=== PATIENT | male | born 1935 | race Caucasian/White ===

== ENCOUNTER → 2019-10-21 12:45 | Outpatient (BNVA) | payer MEDICARE, SELFPAY | PROVIDERS: Family Provider Family Medicine; PCP Family Medicine; Visit Provider Family Medicine | DX: E11.9 Type 2 diabetes mellitus without complications (principal); I10 Essential (primary) hypertension; E03.8 Other specified hypothyroidism | CPT/HCPCS: 80053; 83036; 84443; 85025 ==

== ENCOUNTER → 2021-06-28 10:21 | Outpatient (BNVA) | payer MEDICARE, SELFPAY | PROVIDERS: Family Provider Family Medicine; PCP Family Medicine; Visit Provider Family Medicine | DX: Z00.00 Encounter for general adult medical examination without abnormal findings (principal); E11.65 Type 2 diabetes mellitus with hyperglycemia; E03.8 Other specified hypothyroidism; I10 Essential (primary) hypertension | CPT/HCPCS: 80053; 83036; 84443; 85025 ==

== ENCOUNTER → 2022-05-29 09:57 | Outpatient (BNVA) | payer MEDICARE, SELFPAY | PROVIDERS: Family Provider Family Medicine; PCP Family Medicine; Visit Provider Family Medicine | DX: E03.8 Other specified hypothyroidism (principal); I10 Essential (primary) hypertension; E11.65 Type 2 diabetes mellitus with hyperglycemia; Z23 Encounter for immunization | CPT/HCPCS: 80053; 83036; 84443; 85025 ==

== ENCOUNTER 2022-09-23 05:11 | Emergency (ER) | payer MEDICARE, SELFPAY ==
[2022-09-23 05:18] VITALS: BP 185/99; PULSE 111; RESP 22; TEMP 36.3; O2SAT 92
--- NOTE | 2022-09-23 05:52 | ECG_ITS ---
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 Measurements Intervals [place] Rate: 99 P: 19 [place]: 240 QRS: -16 QRSD: 98 T: 31 QT: 357 QTc: 460 Interpretive Statements SINUS RHYTHM WITH FIRST DEGREE AV BLOCK WITH OCCASIONAL SUPRAVENTRICULAR PREMATURE COMPLEXES MINIMAL VOLTAGE CRITERIA FOR LVH, CONSIDER NORMAL VARIANT [MEETS CRITERIA IN ONE OF: R(aVL), S(V1), R(V5), R(V5/V6)+S(V1)] INFERIOR MYOCARDIAL INFARCTION , PROBABLY OLD [40+ ms Q WAVE AND/OR ST/T ABNORMALITY IN II/aVF] No previous ECG available for comparison Electronically Signed On 09-23-2022 8:35:11 GROUNDS MAINTENANCE SUPERVISOR by Ciarra Menard M.D. [id number]
--- NOTE | 2022-09-23 05:52 | XRR_ITS ---
PROCEDURE INFORMATION: Exam: XR Chest Exam date and time: 09/23/2022 6:02 AM Age: 86 years old Clinical indication: Shortness of breath; Prior surgery; Surgery date: 6+ months; Surgery type: Cabg x20 years ago; Additional info: SOB TECHNIQUE: Imaging protocol: Radiologic exam of the chest. Views: 1 view. COMPARISON: CR XR abdomen min 2V [id number] 10/21/2016 1:09 PM FINDINGS: Lungs: Coarse reticular interstitial lung changes. No definite focal pulmonary consolidation. Pleural spaces: Unremarkable. No pleural effusion. No pneumothorax. Heart/Mediastinum: Cardiac enlargement. CABG. Bones/joints: Unremarkable. XR/XR chest 1V portable [id number] IMPRESSION: Nonspecific pulmonary fibrosis suspected. No definite focal pulmonary consolidation.
[2022-09-23 06:03] LABS: Basophils # 0.1 10^3/uL (0.0-0.1); Basophils % 0.9 %; Eosinophils # 0.7 10^3/uL (0.0-0.8); Eosinophils % 5.3 %; Hematocrit 44.4 % (42.0-52.0); Hemoglobin 14.2 g/dL (11.7-16.6); Lymphocytes # 3.2 10^3/uL (0.8-4.8); Lymphocytes % 22.5 %; Mean Corpuscular Hemoglobin 27.4 pg (28.0-34.0); Mean Corpuscular Volume 85.7 fl (80-94); Monocytes # 1.3 10^3/uL (0.2-0.9); Neutrophils # 8.71 10^3/uL (1.8-7.7); Neutrophils % 61.8 %; Nucleated Red Blood Cells % 0 %; Platelet Count 344 10^3/cmm (130-400); Red Blood Count 5.18 10^6/uL (4.1-5.3); Red Cell Distribution Width 14.1 % (12.1-15.1); White Blood Count 14.1 10^3/uL (4.0-10.0)
[2022-09-23 06:18] LABS: Lactic Sepsis W/Reflex 2.1 mmol/L (0.5-2.2)
[2022-09-23 06:19] LABS: D Dimer 15.76 ug/mIFEU (0-0.59)
[2022-09-23 06:28] LABS: Alanine Aminotransferase 17 U/L (0-41); Albumin Level 4.4 g/dL (3.5-5.2); Alkaline Phosphatase 79 U/L (40-130); Anion Gap 17.5 (5-19); Aspartate Amino Transferase 27 U/L (0-40); Blood Urea Nitrogen 17 mg/dL (8-23); Calcium 9.7 mg/dL (8.5-10.5); Carbon Dioxide 28 mmol/L (22-29); Chloride 94 mmol/L (98-107); Globulin 3.8 g/dL (1.3-4.6); Glucose 75 mg/dL (65-115); NT Pro B Type Natriuretic Pept 480 pg/mL (0-450); Osmolality Calculated 282 mOsm/kg (285-295); Potassium 3.5 mmol/L (3.5-5.1); Sodium 136 mmol/L (136-145); Total Bilirubin 0.4 mg/dL (0.15-1.2); Total Protein 8.2 g/dL (6.6-8.7)
--- NOTE | 2022-09-23 06:30 | CTR_ITS ---
PROCEDURE INFORMATION: Exam: CTA Chest With Contrast Exam date and time: 09/23/2022 7:04 AM Age: 86 years old Clinical indication: Cough and dyspnea; Smoker's cough; Prior surgery; Surgery date: 6+ months; Surgery type: Cabg; Additional info: Chest pain SOB TECHNIQUE: Imaging protocol: Computed tomographic angiography of the chest with contrast. 3D rendering (Not supervised by radiologist): MIP reconstructed images were created by the technologist. Radiation optimization: All CT scans at this facility use at least one of these dose optimization techniques: automated exposure control; mA and/or kV adjustment per patient size (includes targeted exams where dose is matched to clinical indication); or iterative reconstruction. Contrast material: OMNI 350; Contrast volume: 100 ml; Contrast route: INTRAVENOUS (IV); Other protocol: This patient has received 0 known CTs and 0 known cardiac nuclear medicine studies in the 12 months prior to the current study. COMPARISON: CR (CHEST, ) 09/23/2022 6:02 AM RADIATION DOSE METRICS: Total DLP (mGy-cm): 436.12 FINDINGS: Pulmonary arteries: No pulmonary artery embolism identified. Aorta: Moderate aortic arch, branch, and descending thoracic aortic atherosclerotic calcification without ectasia. Veins: The main portal vein measures 10.1 mm. Thyroid: Small bilateral thyroid lobes (status post ablative therapy?). Lungs: Peripheral interlobular septal thickening with architectural distortion, with a relative apico-basal gradient. Lower lung zone subpleural cystic changes and cicatricial bronchiectasis, with areas of peripheral endobronchial mucoid impaction. Left lung calcified granulomas. Pleural spaces: No pneumothorax. No pleural effusion. Heart: Moderate aortic valvular calcification is present. Coronary arteries: Left main, LAD, LCx and RCA [place] calcified coronary atherosclerosis. MARIEE and 2 anterior ascending aortic coronary artery grafts. Assessment of grafts is limited due to predominantly pulmonary arterial bolus phase. Lymph nodes: Left hilar granulomatous kimi calcifications are present. Right superior hilar lymph node measuring 10.8 mm short axis, multiple additional smaller right hilar lymph nodes. Left hilar lymph nodes, largest measuring 11.7 mm. Calcified and noncalcified subcarinal lymph nodes, largest uncalcified lymph node measuring 12.9 mm. Right upper paratracheal lymph nodes, largest 9.8 mm short axis. Small aorticopulmonary window lymph nodes, largest 5.9 mm short axis. Liver: There is a nodular contour to the liver and hypertrophy of the left lobe lateral segment and caudate lobe, consistent with hepatic cirrhosis. Gallbladder and bile ducts: A single 26 mm gallstone is present dependently in the nondistended gallbladder. No wall thickening or pericholecystic fluid identified. Pancreas: Severe pancreatic atrophy. Spleen: The spleen demonstrates a few small granulomatous calcifications. Kidneys and ureters: Bilateral renal benign cysts, largest on the left measuring 5.2 cm. Bones/joints: The patient is status post median sternotomy with sternal cerclage wires. Soft tissues: Mild bilateral gynecomastia. CT/CT angio chest PE protcl [id number] IMPRESSION: 1. No pulmonary artery embolism identified. 2. No thoracic aortic aneurysm or dissection identified. 3. Pulmonary interstitial fibrosis. 4. Nonspecific mild bilateral pulmonary hilar and subcarinal lymphadenopathy. 5. [place] coronary atherosclerosis status post coronary artery grafting. 6. Bilateral renal benign cysts. No follow-up imaging is recommended. 7. Hepatic cirrhosis. 8. Cholelithiasis. COMMENTS: Consistent with the [place] [employer]'s Incidental Findings Committee white paper (J Am Khadijah Radiol 2018): Any incidental renal lesion less than 1 cm or classified as too small to characterize, or any incidental cystic renal lesion characterized as simple-appearing, is likely benign. No follow-up imaging is recommended for these lesions per consensus recommendations based on imaging criteria.
[2022-09-23 06:35] LABS: Troponin(5th) Baseline 39 ng/L (0-15)
[2022-09-23 06:37] LABS: Influenza A by IFA negative (Negative); Influenza B by IFA negative (Negative); SARS Covid-2 Antigen negative (Negative)
--- NOTE | 2022-09-23 07:09 | ED_ITS ---
Documented by User: Jassi Milligan DO 09/23/22 19:54 HPI - SOB/Dyspnea General: Chief Complaint: Shortness of Breath/Dyspnea Stated Complaint: cough Time Seen by Provider: 09/23/22 05:42 Source: patient History of Present Illness: HPI Narrative: 86-year-old gentleman who lives at home. He presents with a cough that been ongoing for a couple of weeks. It seems to be getting worse. He is experienc ing some shortness of breath. Sputum is clear. No fever. No significant chest pain except with cough mainly. No recent increase in lower extremity swelling. He experiences some orthopnea. MD elicited complaint: shortness of breath and cough Pertinent past history: other Onset (ago): week(s) Exacerbating factors: lying flat and exertion Relieving factors: nothing Known history of: other Associated symptoms: Reports chest congestion, cough and orthopnea; Deny chest pain, diaphoresis, dizziness, nausea, syncope or vomiting Treatment prior to arrival: none Related Data: Home oxygen amount: none Review of Systems Const: Denies: diaphoresis Eyes: Denies: change in vision Card: Reports: orthopnea; Denies: chest pain or syncope Resp: Reports: chest congestion GI: Denies: nausea or vomiting Skin/Breast: Denies: rash Neuro: Denies: headache(s), weakness in extremities, dizziness or confusion PFSH ED PFSH: Medical History Diabetes Hypertension Hypothalamic hypothyroidism Surgical History History of heart bypass surgery Social History Smoking and tobacco status: never smoked Alcohol intake: never Physical Exam Const: COMMON NORMALS: no acute distress GENERAL APPEARANCE: cooperative; not ill appearing and not frail appearing HENMT: COMMON NORMALS: normocephalic, atraumatic and Normal external nose present HEAD & SCALP: normocephalic and atraumatic FACE & SINUS: normal facial exam and face symmetric NOSE: Normal external nose present Eye: COMMON NORMALS: Equal, round and reactive pupils present and EOMs intact bilaterally PUPIL: Yes Equal, round and reactive pupils present Neck/C-Spine: GENERAL: Yes trachea midline Chest: CHEST: Yes Symmetrical chest wall rise Resp: COMMON NORMALS: normal respiratory effort, No retractions, No use of accessory muscles and clear to auscultation bilaterally AUSCULTATION: clear to auscultation bilaterally Cardio: COMMON NORMALS: regular rate and regular rhythm RATE: regular rate RHYTHM: regular rhythm GI: COMMON NORMALS: Normal to inspection, nondistended, normoactive bowel sounds present Extremity: COMMON NORMALS: no pedal edema Neuro: ALY COMA SCALE: document GCS findings Aly coma scale eye opening: Spontaneous Stanley coma scale verbal response: Orientated Aly coma scale motor response: Obey commands Stanley coma scale total score: 15 SENSORY EXAM: Yes extremities (intact) Psych: COMMON NORMALS: speech normal SPEECH: Yes normal speech Skin: COMMON NORMALS: no rashes or lesions noted GENERAL SKIN EXAM: no rashes or lesions noted Course Vital Signs: Vital signs: Vital Signs Temperature 97.4 F L 09/23/22 05:18 Pulse Rate 92 09/23/22 07:56 Respiratory Rate 20 H 09/23/22 07:56 Blood Pressure 127/63 09/23/22 07:56 Pulse Oximetry 89 L 09/23/22 10:09 Oxygen Delivery Me thod 09/23/22 07:56 Oxygen Flow Rate 2 09/23/22 10:09 MDM - SOB/Dyspnea Medical Decision Making 86-year-old gentleman who was placed on oxygen for his comfort. Initially was mildly tachycardic. Currently vital signs are pulse ox 99% on 2 L, heart rate 78, blood pressure 118 systolic. His hemoglobin is 14. His white blood cell count is 14. His BMP is not remarkable. His BNP is 480. His baseline troponin is 39. Flu and COVID antigen tests are negative. His D-dimer is significantly elevated at 16. CTA of the chest is pending. He is checked out to the oncoming physician pending results.. Lab Data 09/23/22 05:30 09/23/22 05:30 Labs/Radiology: Radiology Impressions Chest X-Ray 09/23/22 05:52 IMPRESSION: Nonspecific pulmonary fibrosis suspected. No definite focal pulmonary consolidation. Chest CTA 09/23/22 06:30 IMPRESSION: 1. No pulmonary artery embolism identified. 2. No thoracic aortic aneurysm or dissection identified. 3. Pulmonary interstitial fibrosis. 4. Nonspecific mild bilateral pulmonary hilar and subcarinal lymphadenopathy. 5. [place] coronary atherosclerosis status post coronary artery grafting. 6. Bilateral renal benign cysts. No follow-up imaging is recommended. 7. Hepatic cirrhosis. 8. Cholelithiasis. COMMENTS: Consistent with the [place] [employer]'s Incidental Findings Committee white paper (J Am Khadijah Radiol 2018): Any incidental renal lesion less than 1 cm or classified as too small to characterize, or any incidental cystic renal lesion characterized as simple-appearing, is likely benign. No follow-up imaging is recommended for these lesions per consensus recommendations based on imaging criteria. Laboratory Results WBC 14.1 10^3/uL (4.0-10.0) H 09/23/22 05:30 RBC 5.18 10^6/uL (4.1-5.3) 09/23/22 05:30 Hgb 14.2 g/dL (11.7-16.6) 09/23/22 05:30 Hct 44.4 % (42.0-52.0) 09/23/22 05:30 MCV 85.7 fl (80-94) 09/23/22 05:30 MCH 27.4 pg (28.0-34.0) L 09/23/22 05:30 MCHC 32.0 g/dL (30.0-36.0) 09/23/22 05:30 RDW 14.1 % (12.1-15.1) 09/23/22 05:30 Plt Count 344 10^3/cmm (130-400) 09/23/22 05:30 MPV 10.0 fL (7.4-10.4) 09/23/22 05:30 Neut % (Auto) 61.8 % 09/23/22 05:30 Lymph % (Auto) 22.5 % 09/23/22 05:30 Treasure % (Auto) 9.0 % 09/23/22 05:30 Eos % (Auto) 5.3 % 09/23/22 05:30 Baso % (Auto) 0.9 % 09/23/22 05:30 Neut # (Auto) 8.71 10^3/uL (1.8-7.7) H 09/23/22 05:30 Lymph # (Auto) 3.2 10^3/uL (0.8-4.8) 09/23/22 05:30 Treasure # (Auto) 1.3 10^3/uL (0.2-0.9) H 09/23/22 05:30 Eos # (Auto) 0.7 10^3/uL (0.0-0.8) 09/23/22 05:30 Baso # (Auto) 0.1 10^3/uL (0.0-0.1) 09/23/22 05:30 Nucleated RBC % (auto) 0 % 09/23/22 05:30 Nucleated RBCs # 0.0 /100WBC 09/23/22 05:30 D-Dimer 15.76 ug/mIFEU (0-0.59) H 09/23/22 05:30 Sodium 136 mmol/L (136-145) 09/23/22 05:30 Potassium 3.5 mmol/L (3.5-5.1) 09/23/22 05:30 Chloride 94 mmol/L (98-107) L 09/23/22 05:30 Carbon Dioxide 28 mmol/L (22-29) 09/23/22 05:30 Anion Gap 17.5 (5-19) 09/23/22 05:30 BUN 17 mg/dL (8-23) 09/23/22 05:30 Creatinine 1.0 mg/dL (0.7-1.2) 09/23/22 05:30 GFR Calculation Not Reportable 09/23/22 05:30 Glucose 75 mg/dL (65-115) 09/23/22 05:30 Calculated Osmolality 282 mOsm/kg (285-295) L 09/23/22 05:30 Lactic Acid 2.1 mmol/L (0.5-2.2) 09/23/22 05:30 Lactic Acid (Sepsis) 1.3 mmol/L (0.5-2.2) 09/23/22 08:30 Calcium 9.7 mg/dL (8.5-10.5) 09/23/22 05:30 Total Bilirubin 0.4 mg/dL (0.15-1.2) 09/23/22 05:30 AST 27 U/L (0-40) 09/23/22 05:30 ALT 17 U/L (0-41) 09/23/22 05:30 Alkaline Phosphatase 79 U/L (40-130) 09/23/22 05:30 Troponin T Baseline 39 ng/L (0-15) H 09/23/22 05:30 Troponin T 120 Minute 34.36 ng/L (0-15) H 09/23/22 07:20 Delta Troponin T -4.64 ABS# (0-10) L 09/23/22 07:20 NT-Pro-B Natriuret Pep 480 pg/mL (0-450) H 09/23/22 05:30 Total Protein 8.2 g/dL (6.6-8.7) 09/23/22 05:30 Albumin 4.4 g/dL (3.5-5.2) 09/23/22 05:30 Globulin 3.8 g/dL (1.3-4.6) 09/23/22 05:30 Influenza Type A Ag negative (Negative) 09/23/22 06:00 Influenza Type B Ag negative (Negative) 09/23/22 06:00 SARS-CoV-2 Ag (Rapid) negative (Negative) 09/23/22 06:00 Discharge Plan Discharge Patient Disposition: Home Clinical Impression: Interstitial pulmonary fibrosis Condition: Stable Prescriptions: New Advair Diskus 100-50 mcg/dose blister with device 1 inh inhalation BID Qty: 60 0RF prednisone 20 mg tablet 20 mg PO TID Qty: 15 0RF Rx Instructions: 1 p.o. 3 times daily x3 days, 1 p.o. twice daily x2 days, 1 p.o. daily x2 days No Action aspirin 325 mg tablet 325 mg PO DAILY nitroglycerin [Nitrostat] 0.4 mg tablet, sublingual 0.4 mg SUBLINGUAL Q5M PRN (Reason: chest pain) Qty: 30 3RF nitroglycerin [Nitro-Time] 2.5 mg capsule, extended release 2.5 mg PO BID Qty: 180 3RF Rx Instructions: allow nitrate-free interval of approx. 10-12 hrs per 24-hour period folic acid 1 mg tablet 1 mg PO DAILY 90 Days Qty: 90 1RF glipizide 10 mg tablet 10 mg PO BID 90 Days Qty: 180 1RF lisinopril-hydrochlorothiazide 20-12.5 mg tablet 1 tab PO BID metformin 850 mg tablet 850 mg PO BID pioglitazone 30 mg tablet 30 mg PO DAILY levothyroxine 112 mcg tablet 112 mcg PO DAILY Discharge Orders: Discharge ED (Routine); Ordered 09/23/22 Ordered By: Rober Tracy Other Ambulatory Orders: DME: Oxygen (Order) Location: None Selected Ordered By: Rober Tracy Referrals: Cherelle Nieto MD [Primary Care Provider] - Discharge Diet: Usual diet Discharge Activity: Resume usual activity Patient Instructions: Opioid Safety, Pain Management Activity Restrictions/Additional Instructions: You were seen today for shortness of breath. Your testing shows you have pulmonary interstitial fibrosis. Your oximetry improved with supplemental oxygen. Will be discharged home on 2 L/min by nasal cannula. We will make arrangements for you to have an outpatient echocardiogram and consultation with pulmonology. Sign Out Sign Out Data: Patient Sign Out occurred on 09/23/22 at 07:20. Patient's care was discussed, and care was transferred from to Rober Tracy DO. Coding Level of Care Code ED Photo Mask Pattern Generator for Chg Fwd Documented by User: Rober Tracy DO 09/25/22 06:29 HPI - SOB/Dyspnea General: Chief Complaint: Shortness of Breath/Dyspnea Stated Complaint: cough Time Seen by Provider: 09/23/22 05:42 [facility] ED PFSH: Medical History Diabetes Hypertension Hypothalamic hypothyroidism Surgical History History of heart bypass surgery Social History Smoking and tobacco status: never smoked Alcohol intake: never Physical Exam Neuro: ALY COMA SCALE: document GCS findings Aly coma scale total score: 15 Course Vital Signs: Vital signs: Vital Signs Temperature 97.4 F L 09/23/22 05:18 Pulse Rate 92 09/23/22 07:56 Respiratory Rate 20 H 09/23/22 07:56 Blood Pressure 127/63 09/23/22 07:56 Pulse Oximetry 89 L 09/23/22 10:09 Oxygen Delivery Me thod 09/23/22 07:56 Oxygen Flow Rate 2 09/23/22 10:09 MDM - SOB/Dyspnea Medical Decision Making 86-year-old gentleman who was placed on oxygen for his comfort. Initially was mildly tachycardic. Currently vital signs are pulse ox 99% on 2 L, heart rate 78, blood pressure 118 systolic. His hemoglobin is 14. His white blood cell count is 14. His BMP is not remarkable. His BNP is 480. His baseline troponin is 39. Flu and COVID antigen tests are negative. His D-dimer is significantly elevated at 16. CTA of the chest is pending. He is checked out to the oncoming physician pending results.. Patient care handoff received from Dr. Milligan continuation of ED evaluation. I personally saw and evaluated patient and reperformed alvarado portions of E/M. Patient feels he is improved. Laboratory tests and imaging reviewed his CT did not show any PEs. Discharge patient home on home oxygen at 2 L also start him on Advair and a prednisone taper follow-up with outpatient echocardiogram and pulmonology Labs imaging and EKG reviewed troponins trending down CTA negative EKG showed no acute changes. Medical Records I reviewed the patient's medical records. Lab Data I reviewed the patient's lab results. 09/23/22 05:30 09/23/22 05:30 Labs/Radiology: Radiology Impressions Chest X-Ray 09/23/22 05:52 IMPRESSION: Nonspecific pulmonary fibrosis suspected. No definite focal pulmonary consolidation. Chest CTA 09/23/22 06:30 IMPRESSION: 1. No pulmonary artery embolism identified. 2. No thoracic aortic aneurysm or dissection identified. 3. Pulmonary interstitial fibrosis. 4. Nonspecific mild bilateral pulmonary hilar and subcarinal lymphadenopathy. 5. [place] coronary atherosclerosis status post coronary artery grafting. 6. Bilateral renal benign cysts. No follow-up imaging is recommended. 7. Hepatic cirrhosis. 8. Cholelithiasis. COMMENTS: Consistent with the [place] [employer]'s Incidental Findings Committee white paper (J Am Khadijah Radiol 2018): Any incidental renal lesion less than 1 cm or classified as too small to characterize, or any incidental cystic renal lesion characterized as simple-appearing, is likely benign. No follow-up imaging is recommended for these lesions per consensus recommendations based on imaging criteria. Laboratory Results WBC 14.1 10^3/uL (4.0-10.0) H 09/23/22 05:30 RBC 5.18 10^6/uL (4.1-5.3) 09/23/22 05:30 Hgb 14.2 g/dL (11.7-16.6) 09/23/22 05:30 Hct 44.4 % (42.0-52.0) 09/23/22 05:30 MCV 85.7 fl (80-94) 09/23/22 05:30 MCH 27.4 pg (28.0-34.0) L 09/23/22 05:30 MCHC 32.0 g/dL (30.0-36.0) 09/23/22 05:30 RDW 14.1 % (12.1-15.1) 09/23/22 05:30 Plt Count 344 10^3/cmm (130-400) 09/23/22 05:30 MPV 10.0 fL (7.4-10.4) 09/23/22 05:30 Neut % (Auto) 61.8 % 09/23/22 05:30 Lymph % (Auto) 22.5 % 09/23/22 05:30 Treasure % (Auto) 9.0 % 09/23/22 05:30 Eos % (Auto) 5.3 % 09/23/22 05:30 Baso % (Auto) 0.9 % 09/23/22 05:30 Neut # (Auto) 8.71 10^3/uL (1.8-7.7) H 09/23/22 05:30 Lymph # (Auto) 3.2 10^3/uL (0.8-4.8) 09/23/22 05:30 Treasure # (Auto) 1.3 10^3/uL (0.2-0.9) H 09/23/22 05:30 Eos # (Auto) 0.7 10^3/uL (0.0-0.8) 09/23/22 05:30 Baso # (Auto) 0.1 10^3/uL (0.0-0.1) 09/23/22 05:30 Nucleated RBC % (auto) 0 % 09/23/22 05:30 Nucleated RBCs # 0.0 /100WBC 09/23/22 05:30 D-Dimer 15.76 ug/mIFEU (0-0.59) H 09/23/22 05:30 Sodium 136 mmol/L (136-145) 09/23/22 05:30 Potassium 3.5 mmol/L (3.5-5.1) 09/23/22 05:30 Chloride 94 mmol/L (98-107) L 09/23/22 05:30 Carbon Dioxide 28 mmol/L (22-29) 09/23/22 05:30 Anion Gap 17.5 (5-19) 09/23/22 05:30 BUN 17 mg/dL (8-23) 09/23/22 05:30 Creatinine 1.0 mg/dL (0.7-1.2) 09/23/22 05:30 GFR Calculation Not Reportable 09/23/22 05:30 Glucose 75 mg/dL (65-115) 09/23/22 05:30 Calculated Osmolality 282 mOsm/kg (285-295) L 09/23/22 05:30 Lactic Acid 2.1 mmol/L (0.5-2.2) 09/23/22 05:30 Lactic Acid (Sepsis) 1.3 mmol/L (0.5-2.2) 09/23/22 08:30 Calcium 9.7 mg/dL (8.5-10.5) 09/23/22 05:30 Total Bilirubin 0.4 mg/dL (0.15-1.2) 09/23/22 05:30 AST 27 U/L (0-40) 09/23/22 05:30 ALT 17 U/L (0-41) 09/23/22 05:30 Alkaline Phosphatase 79 U/L (40-130) 09/23/22 05:30 Troponin T Baseline 39 ng/L (0-15) H 09/23/22 05:30 Troponin T 120 Minute 34.36 ng/L (0-15) H 09/23/22 07:20 Delta Troponin T -4.64 ABS# (0-10) L 09/23/22 07:20 NT-Pro-B Natriuret Pep 480 pg/mL (0-450) H 09/23/22 05:30 Total Protein 8.2 g/dL (6.6-8.7) 09/23/22 05:30 Albumin 4.4 g/dL (3.5-5.2) 09/23/22 05:30 Globulin 3.8 g/dL (1.3-4.6) 09/23/22 05:30 Influenza Type A Ag negative (Negative) 09/23/22 06:00 Influenza Type B Ag negative (Negative) 09/23/22 06:00 SARS-CoV-2 Ag (Rapid) negative (Negative) 09/23/22 06:00 Discharge Plan Discharge Patient Disposition: Home Clinical Impression: Interstitial pulmonary fibrosis Condition: Stable Prescriptions: New Advair Diskus 100-50 mcg/dose blister with device 1 inh inhalation BID Qty: 60 0RF prednisone 20 mg tablet 20 mg PO TID Qty: 15 0RF Rx Instructions: 1 p.o. 3 times daily x3 days, 1 p.o. twice daily x2 days, 1 p.o. daily x2 days No Action aspirin 325 mg tablet 325 mg PO DAILY nitroglycerin [Nitrostat] 0.4 mg tablet, sublingual 0.4 mg SUBLINGUAL Q5M PRN (Reason: chest pain) Qty: 30 3RF nitroglycerin [Nitro-Time] 2.5 mg capsule, extended release 2.5 mg PO BID Qty: 180 3RF Rx Instructions: allow nitrate-free interval of approx. 10-12 hrs per 24-hour period folic acid 1 mg tablet 1 mg PO DAILY 90 Days Qty: 90 1RF glipizide 10 mg tablet 10 mg PO BID 90 Days Qty: 180 1RF lisinopril-hydrochlorothiazide 20-12.5 mg tablet 1 tab PO BID metformin 850 mg tablet 850 mg PO BID pioglitazone 30 mg tablet 30 mg PO DAILY levothyroxine 112 mcg tablet 112 mcg PO DAILY Discharge Orders: Discharge ED (Routine); Ordered 09/23/22 Ordered By: Rober Tracy Other Ambulatory Orders: DME: Oxygen (Order) Location: None Selected Ordered By: Rober Tracy Referrals: Cherelle Nieto MD [Primary Care Provider] - Discharge Diet: Usual diet Discharge Activity: Resume usual activity Patient Instructions: Opioid Safety, Pain Management Activity Restrictions/Additional Instructions: You were seen today for shortness of breath. Your testing shows you have pulmonary interstitial fibrosis. Your oximetry improved with supplemental oxygen. Will be discharged home on 2 L/min by nasal cannula. We will make arrangements for you to have an outpatient echocardiogram and consultation with pulmonology. Sign Out Sign Out Data: Patient Sign Out occurred on 09/23/22 at 07:20. Patient's care was discussed, and care was transferred from to Rober Tracy DO. Coding Level of Care Code ED Photo Mask Pattern Generator for Guido Camarillo
[2022-09-23] MEDS: iohexol 350 mg/mL 500 mL Btl (per mL) IV (07:14)
[2022-09-23 07:41] LABS: Troponin 5 2HR 34.36 ng/L (0-15)
[2022-09-23 07:45] LABS: Troponin 5 2HR Delta -4.64 ABS# (0-10)
[2022-09-23 07:48] LABS: Reflex Lactate Order REFLEX LACTIC ORDERD
--- NOTE | 2022-09-23 07:52 | ECG_ITS ---
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 Measurements Intervals [place] Rate: 94 P: 72 [place]: 243 QRS: 3 QRSD: 106 T: 36 QT: 386 QTc: 483 Interpretive Statements SINUS RHYTHM WITH SINUS ARRHYTHMIA WITH FIRST DEGREE AV BLOCK MINIMAL ST DEPRESSION [0.025+ mV ST DEPRESSION] Compared to ECG 09/23/2022 06:07:26 ST (T wave) deviation now present Myocardial infarct finding no longer present Electronically Signed On 09-23-2022 22:15:38 COMMERCIAL HVAC SERVICE TECHNICIAN by Ciarra Menard M.D. [email or web address]
[2022-09-23 07:56] VITALS: BP 127/63; PULSE 92; RESP 20; O2SAT 97
[2022-09-23 09:04] LABS: Lactic Acid level (Lactate) 1.3 mmol/L (0.5-2.2)
[2022-09-23 10:09] VITALS: O2SAT 85; O2SAT 89; O2SAT 94
--- NOTE | 2022-09-23 10:24 | PC.NURSE ---
PT VERBALIZED THAT HOME O2 EVAL PERFORMED BY RT.
--- NOTE | 2022-09-23 10:24 | PC.NURSE ---
NO REPORT ASSUMED CARE OF PT. WHILE AT BEDSIDE PT IS SITTING IN BED IN NAD. PT DOES NOT VERBALIZE ANY NEEDS AT THIS TIME.
--- NOTE | 2022-09-23 11:11 | PC.NURSE ---
I went into the patients room to answer his call light and found the patient sitting on the floor by his bed. Pt states I was trying to walk and fell over. Pt denies hitting his head or hurting anywhere else. Pt assisted to bed with SUDHA Zeng and I. Pt hooked up to the VS monitor. Pt is on 3 L NC satting at 91%. VS stable.
--- NOTE | 2022-09-23 14:52 | DCPLANNER ---
Addendum entered by Lynn Alfred 11/26/22 14:49: Patient had a follow up appointment with pulmonology - patient did attend appointment Addendum entered by Lynn Alfred 10/30/22 08:28: Patient had a PFT and an echo scheduled - patient attended both appointments Addendum entered by Lynn Alfred 09/27/22 13:51: Patient has a follow up appointment scheduled for Friday, October 21, 2022 at 10:15 for an outpatient echo. Patient has a follow up appointment scheduled for September at 10:00 Centralized scheduling will call patient with appointment information. Addendum entered by Lynn Alfred 09/24/22 10:11: Patient has a follow up appointment scheduled for Friday, November 25, 2022 at 2:[address] Garay at [facility]. Clinic will call patient with appointment information. Original Note: technical sales support manager had message to schedule an outpatient echo and pulmonary function test for patient. technical sales support manager faxed signed order to centralized scheduling, who will call patient with appointment information. technical sales support manager also had message to schedule a follow up appointment with pulmonology. technical sales support manager sent patients information to the front office staff at [facility]. Patients information will be printed and reviewed. Clinic will call patient with appointment information. technical sales support manager called patients primary care physician, Dr. Nieto, spoke with his nurse. technical sales support manager informed the nurse that patient was seen in the ER and let them know that the ER physician order some tests from the ER and a follow up with pulmonology and asked if the physician wanted adult protective caseworker to proceed with ordering the tests and the referral to pulmonology. technical sales support manager was told to go ahead and order tests and make the referral.
== END 2022-09-23 13:58 | disposition home or self-care (01) ==
PROVIDERS: Emergency Medicine; Emergency Provider Family Medicine; PCP Family Medicine
DX: J84.10 Pulmonary fibrosis, unspecified (principal); Z79.82 Long term (current) use of aspirin; Z79.84 Long term (current) use of oral hypoglycemic drugs; Z20.822 Contact with and (suspected) exposure to COVID-19; E11.9 Type 2 diabetes mellitus without complications; I10 Essential (primary) hypertension
CPT/HCPCS: 36415; 71045; 71275; 80053; 83605; 83880; 84484; 85025; 85378; 87040; 87426; 87804; 93005; 99285; Q9967

== ENCOUNTER 2022-10-10 09:40 | Outpatient (CLI) | payer MEDICARE, SELFPAY ==
[2022-10-10 10:06] VITALS: PULSE 80; RESP 18; O2SAT 92
[2022-10-10 10:11] VITALS: PULSE 82
== END 2022-10-10 09:41 | disposition home or self-care (01) ==
PROVIDERS: PCP Family Medicine; Visit Provider Family Medicine
DX: J84.10 Pulmonary fibrosis, unspecified (principal)
CPT/HCPCS: 94060; 94726; 94729; J7613

== ENCOUNTER 2022-10-14 16:21 | Emergency (ER) | payer MEDICARE, SELFPAY ==
[2022-10-14 16:27] VITALS: BP 135/74; PULSE 87; RESP 18; TEMP 36.5; O2SAT 97; BMI 37.8
[2022-10-14 16:51] VITALS: BP 122/58; PULSE 106; O2SAT 98
--- NOTE | 2022-10-14 17:59 | W.ED.GENADLT ---
HPI - General Adult General: Chief complaint: General Medical Stated complaint: WOUNDS Time Seen by Provider: 10/14/22 16:42 History of Present Illness: 86-year-old male in with concerns of sores on his bottom that have been getting increasingly red with some scant drainage. Patient's been more bedbound than normal. His noted that these areas have changed somewhat and recommended that he come to the emergency department for evaluation. Patient has multiple medical problems including chronic respiratory failure that limit his activity. He denies any fever or chills. No other symptoms reported. Review of Systems General: Reports: 10 or more systems reviewed and unremarkable except in HPI and below Skin/Breast: Reports: erythema, skin swelling, sores, new lesions, changing lesions and non-healing lesions PFSH ED PFSH: Medical History (Updated 10/14/22 @ 18:08 by William Cazares DO) Diabetes Hypertension Hypothalamic hypothyroidism Interstitial lung disease Surgical History History of heart bypass surgery Social History Smoking and tobacco status: never smoked Alcohol intake: never Physical Exam Const: COMMON NORMALS: no acute distress, patient oriented x3, alert and well nourished Eye: COMMON NORMALS: Equal, round and reactive pupils present, EOMs intact bilaterally and conjunctivae normal CONJUNCTIVA: Yes conjunctivae normal PUPIL: Yes Equal, round and reactive pupils present Neck/C-Spine: COMMON NORMALS: no JVD Chest: COMMONS NORMALS: normal inspection of the chest and normal palpation of entire chest wall Resp: COMMON NORMALS: normal respiratory effort, No retractions, No use of accessory muscles, clear to auscultation bilaterally and percussion normal AUSCULTATION: clear to auscultation bilaterally PERCUSSION: percussion normal Cardio: COMMON NORMALS: no JVD GI: COMMON NORMALS: Normal to inspection, nondistended, normoactive bowel sounds present, Soft to palpation, non-tender, No hepatosplenomegaly present, no masses and no bruits PALPATION: Yes Soft to palpation and Yes No hepatosplenomegaly present Extremity: COMMON NORMALS: normal to inspection, full ROM, capillary refill normal, no joint enlargement, no clubbing, cyanosis or edema, no calf tenderness and no pedal edema Neuro: COMMON NORMALS: patient oriented x3 SENSORIUM/ORIENTATION: Yes alert Skin: NARRATIVE SKIN EXAM: Several scattered stage I and stage II sacral pressure ulcers with some surrounding erythema and scant yellow drainage. Course Vital Signs: Vital signs: Vital Signs Temperature 97.7 F 10/14/22 16:27 Pulse Rate 94 10/14/22 18:20 Respiratory Rate 18 10/14/22 16:27 Blood Pressure 113/73 10/14/22 18:20 Pulse Oximetry 97 10/14/22 18:20 Oxygen Delivery Me thod 10/14/22 16:27 Oxygen Flow Rate 2 10/14/22 16:27 MDM - General Adult Medical Decision Making 86-year-old male in with a skin and soft tissue infection these most likely secondarily infected pressure ulcers. I do not think there is any abscess or more serious condition such as Chinedu's gangrene or the like. I recommended offloading and frequent turning to avoid pressure on this area start an antibiotic and have close follow-up with his primary care physician. Return precautions and follow-up instructions given. Discharge Plan Discharge Patient Disposition: Home Clinical Impression: Pressure ulcer, Cellulitis Condition: Stable Prescriptions: New cephalexin 500 mg capsule 500 mg PO TID 7 Days Qty: 21 0RF No Action aspirin 325 mg tablet 325 mg PO DAILY nitroglycerin [Nitrostat] 0.4 mg tablet, sublingual 0.4 mg SUBLINGUAL Q5M PRN (Reason: chest pain) Qty: 30 3RF prednisone 10 mg tablet 10 mg PO DAILY Qty: 7 0RF Rx Instructions: start this on friday...will be out of 20mg tab 10/08/22. nitroglycerin [Nitro-Time] 2.5 mg capsule, extended release 2.5 mg PO BID Qty: 180 3RF Rx Instructions: allow nitrate-free interval of approx. 10-12 hrs per 24-hour period folic acid 1 mg tablet 1 mg PO DAILY 90 Days Qty: 90 1RF glipizide 10 mg tablet 10 mg PO BID 90 Days Qty: 180 1RF lisinopril-hydrochlorothiazide 20-12.5 mg tablet 1 tab PO BID metformin 850 mg tablet 850 mg PO BID pioglitazone 30 mg tablet 30 mg PO DAILY levothyroxine 112 mcg tablet 112 mcg PO DAILY Advair Diskus 100-50 mcg/dose blister with device 1 inh inhalation BID Qty: 60 0RF Discharge Orders: Discharge ED (Routine); Ordered 10/14/22 Ordered By: William Cazares Referrals: Cherelle Nieto MD [Primary Care Provider] - Discharge Diet: Usual diet Discharge Activity: Resume usual activity Patient Instructions: Opioid Safety, Pain Management Activity Restrictions/Additional Instructions: 1. Alternate position every 2 hours. Take Rx as directed. 2. Follow up with PCP for recheck later this week. 3. Return if worse. 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
[2022-10-14 18:20] VITALS: BP 113/73; PULSE 94; O2SAT 97
== END 2022-10-14 18:36 | disposition home or self-care (01) ==
PROVIDERS: Emergency Provider Family Medicine; PCP Family Medicine
DX: L89.152 Pressure ulcer of sacral region, stage 2 (principal); L03.317 Cellulitis of buttock
CPT/HCPCS: 99283

== ENCOUNTER 2022-10-21 09:45 | Outpatient (CLI) | payer MEDICARE, SELFPAY ==
--- NOTE | 2022-10-21 | USCV_ITS ---
Wilbert Díaz Age: 86 Gender: M : 1935 Exam Date: 10/21/2022 10:22 Ordering Phys: Rober Tracy DO Technologist: Corey Smith Exam Location: [facility] [place] Indication: INTERSTITIAL PULMONARY FIBROSIS BP: 148 / 90 HR: 90 Rhythm: Sinus Technical Quality: Suboptimal MEASUREMENTS (Male / Female) Normal Values 2D ECHO LV Diastolic Diameter PLAX 5.4 cm 4.2 - 5.9 / 3.9 - 5.3 cm LV Systolic Diameter PLAX 4.0 cm IVS Diastolic Thickness 0.9 cm 0.6 - 1.0 / 0.6 - 0.9 cm IVS Systolic Thickness 1.5 cm LVPW Diastolic Thickness 1.2 cm 0.6 - 1.0 / 0.6 - 0.9 cm LVPW Systolic Thickness 2.4 cm LVOT Diameter 2.0 cm LV Ejection Fraction 2D Teich 51.0 % LV Ejection Fraction MOD 2C 55.6 % LV Ejection Fraction 2C AL 55.4 % LA Diameter 3.8 cm LA Width 4.0 cm LA Height 4.9 cm RA Width 2.8 cm RA Height 4.8 cm Aorta at Sinotubular Diameter 2.4 cm IVC Diameter 1.6 cm M-MODE Aortic Annulus Diameter 2.4 cm LA Ao Ratio MM 1.6 MV E Point Septal Separation 0.5 cm DOPPLER AV Peak Velocity 254.7 cm/s LVOT Peak Velocity 71.0 cm/s AV Area Cont Eq vti 0.8 cm squared AV Area Cont Eq pk 0.9 cm squared MV Peak Velocity 106.0 cm/s MV Area PHT 8.5 cm squared Mitral E to A Ratio 0.9 MV E' Velocity 32.0 cm/s Mitral E to MV E' Ratio 5.8 Mitral E to LV E' Lateral Ratio 5.8 Mitral E to LV E' Septal Ratio 5.8 TR Peak Velocity 281.8 cm/s TR Peak Gradient 31.8 mmHg TR Mean Velocity 235.8 cm/s TR Mean Gradient 26.5 mmHg TR Velocity Time Integral 77.5 cm Right Atrial Pressure 3.0 mmHg Pulmonary Artery Systolic Pressu 34.8 mmHg PV Peak Velocity 80.0 cm/s RV Acceleration Time 0.1 s RV Ejection Time 0.2 s RV AcT/ET 0.4 FINDINGS Left Ventricle Left ventricular cavity not well visualized. Normal left ventricular size, systolic function and wall thickness, with no regional wall motion abnormalities. Grade II/IV diastolic dysfunction, moderately elevated filling pressures. Left ventricular ejection fraction is estimated at 55 %. Right Ventricle Normal right ventricular size and systolic function. Right Atrium The right atrium is normal in size. Left Atrium The left atrium is normal in size. Mitral Valve Structurally normal mitral valve. Mild mitral valve regurgitation. Mitral valve not well visualized. Aortic Valve Aortic valve not well visualized. Structurally normal trileaflet aortic valve. Mild aortic valve calcification. Moderate aortic valve stenosis, mean gradient 14.2 mmHg, CARMELO 0.82 cm squared. Mild aortic valve regurgitation. Tricuspid Valve Structurally normal tricuspid valve. Tricuspid valve not well visualized. Mild tricuspid valve regurgitation. Pulmonic Valve Pulmonic valve not well visualized. Pericardium Normal pericardium without effusion. Aorta Normal ascending aorta dimension. IVC Inferior vena cava not visualized. CONCLUSIONS Left ventricular cavity not well visualized. Normal left ventricular size, systolic function and wall thickness, with no regional wall motion abnormalities. Grade II/IV diastolic dysfunction, moderately elevated filling pressures. Left ventricular ejection fraction is estimated at 55 %. Structurally normal mitral valve. Mild mitral valve regurgitation. Mitral valve not well visualized. Aortic valve not well visualized. Structurally normal trileaflet aortic valve. Mild aortic valve calcification. Moderate aortic valve stenosis, mean gradient 14.2 mmHg, CARMELO 0.82 cm squared. Mild aortic valve regurgitation. There are no prior echocardiogram studies to compare. Dr. Vern Contreras MD (Electronically Signed) Final Date: 21 October 2022 16:18 S
== END 2022-10-21 09:46 | disposition home or self-care (01) ==
PROVIDERS: PCP Family Medicine; Visit Provider Family Medicine
DX: J84.10 Pulmonary fibrosis, unspecified (principal); I08.0 Rheumatic disorders of both mitral and aortic valves
CPT/HCPCS: 93306

== ENCOUNTER → 2022-11-25 13:32 | Outpatient (BNVA) | payer MEDICARE, SELFPAY | PROVIDERS: PCP Family Medicine; Visit Provider Internal Medicine Pulmonary Disease | DX: J84.9 Interstitial pulmonary disease, unspecified (principal); E11.9 Type 2 diabetes mellitus without complications; I10 Essential (primary) hypertension; Z79.84 Long term (current) use of oral hypoglycemic drugs | CPT/HCPCS: 36415; 80053; 85652; 86038; 86140; 86200; 86235; 86331; 86431; 86606; 86609; 99204 ==

== ENCOUNTER 2022-12-09 09:55 | Emergency (ER) | payer MEDICARE, MEDICAID, SELFPAY ==
[2022-12-09] VITALS (9 sets, daily range): BP systolic 107–146; BP diastolic 57–105; PULSE 110; RESP 26; TEMP 36.7; O2SAT 86–99; BMI 33.1
--- NOTE | 2022-12-09 10:13 | ECG_ITS ---
[facility] Test Date: 2022-12-09 Pat Name: Wilbert Díaz Department: Room: Gender: Male [address] [employer]: : 1935 Requested By: Rober Hargrove Order Number: [id number] Jamin MD: Vern Contreras M.D. Measurements Intervals [place] Rate: 106 P: 0 ME: 0 QRS: -29 QRSD: 97 T: 29 QT: 356 QTc: 474 Interpretive Statements ATRIAL FIBRILLATION WITH RAPID VENTRICULAR RESPONSE BORDERLINE LEFT AXIS DEVIATION [QRS AXIS < -20] MODERATE VOLTAGE CRITERIA FOR LVH, CONSIDER NORMAL VARIANT [MEETS CRITERIA IN ONE OF: R(aVL), S(V1), R(V5), R(V5/V6)+S(V1)] NONSPECIFIC ST & T-WAVE ABNORMALITY ABNORMAL RHYTHM ECG Compared to ECG 09/23/2022 08:27:23 T-wave abnormality now present Sinus rhythm no longer present Sinus arrhythmia no longer present First degree AV block no longer present ST (T wave) deviation no longer present Electronically Signed On 12-09-2022 14:29:28 CDT by Vern Contreras M.D. [id number]
--- NOTE | 2022-12-09 10:40 | XR_ITS ---
WS: [id number] Exam: XR chest 1V portable [id number] Date/Time of Exam: 12/09/2022 10:41 AM Reason For Exam: dyspnea/cough Comparison 09/23/2022. Extensive changes of the interstitial fibrosis noted bilaterally. No acute consolidating infiltrates are seen. The heart is enlarged but unchanged in size. Signs of previous CABG surgery. The mediastinu m is normal in contour. No pleural effusions or pneumothorax. Bony structures are intact. XR/XR chest 1V portable [id number] IMPRESSION: 1. Extensive chronic interstitial changes noted. 2. Cardiac enlargement unchanged. No acute infiltrates noted.
[2022-12-09 11:00] LABS: ABG PCO2 37.1 mmHg (35-45); ABG PH Result 7.48 (7.35-7.45); Alveolar-Arterial Oxygen Gradi 18.6 mmHg (5-10); Arterial Blood Gas Hematocrit 35.5 % (42-52); Base Excess ABG 4.2 mmol/L (-2.0-2.0); Blood Gas Operator Identificat AMH; Blood Gas Sample Site Brachial, right; Blood Gas Sample Type Arterial; Carboxyhemoglobin 1.8 %THgb (0.4-20.1); HCO3 ABG 27.8 mmol/L (22-26); HGB O2 Sat 93.7 % (95-100); Ionized Calcium Level - ABG 1.2 mmol/L (1.1-1.4); Methemoglobin 0.6 % (0.4-1.5); Oxygen Device NC; PO2 ABG 68.9 mmHg (80.0-100.0); Potassium Level - ABG 3.1 mmol/L (3.5-5.0); Total Hemoglobin 11.6 g/dL (14-18)
[2022-12-09 11:09] LABS: Basophils # 0.1 10^3/uL (0.0-0.1); Basophils % 0.7 %; Eosinophils # 0.4 10^3/uL (0.0-0.8); Eosinophils % 2.9 %; Hematocrit 33.7 % (42.0-52.0); Hemoglobin 10.6 g/dL (11.7-16.6); Lymphocytes # 1.7 10^3/uL (0.8-4.8); Lymphocytes % 13.6 %; Mean Corpuscular HGB Conc 31.5 g/dL (30.0-36.0); Mean Corpuscular Hemoglobin 27.5 pg (28.0-34.0); Mean Corpuscular Volume 87.5 fl (80-94); Mean Platelet Volume 9.6 fL (7.4-10.4); Monocytes % 7.7 %; Neutrophils # 9.57 10^3/uL (1.8-7.7); Neutrophils % 74.6 %; Nucleated Red Blood Cells % 0 %; Platelet Count 267 10^3/cmm (130-400); Red Blood Count 3.85 10^6/uL (4.1-5.3); Red Cell Distribution Width 16.7 % (12.1-15.1); White Blood Count 12.8 10^3/uL (4.0-10.0)
[2022-12-09] MEDS: FUROsemide 10 mg/mL SDV 10mL 60 MG IVP (11:20)
--- NOTE | 2022-12-09 11:20 | ED_ITS ---
Documented by User: Rober Tracy DO 12/11/22 08:31 HPI - SOB/Dyspnea General: Chief Complaint: Shortness of Breath/Dyspnea Stated Complaint: sob Time Seen by Provider: 12/09/22 10:39 Source: patient Mode of arrival: ambulatory History of Present Illness: HPI Narrative: 87-year-old male presents emergency room complaining of cough and shortness of breath. Some mild orthopnea denies any chest pain. There is no significant swelling in his lower extremities. Patient is chronically on oxygen and was unsure of the flow rate he usually uses. No history of DVT MD elicited complaint: shortness of breath and cough Pertinent past history: congestive heart failure Onset (ago): day(s) Timing: constant Severity: moderate Exacerbating factors: lying flat and exertion Associated symptoms: Deny abdominal pain, chest pain, fever(s), nausea, orthopnea or vomiting Review of Systems Const: Denies: fever(s), chills, body aches, change in appetite, fatigue or malaise ENMT: Denies: throat pain, ear or mastoid pain, nasal discharge or nasal congestion Card: Reports: edema and dyspnea on exertion; Denies: chest pain or orthopnea Resp: Denies: dyspnea, productive cough or non-productive cough GI: Denies: abdominal pain, nausea, vomiting, hematemesis, coffee ground emesis, diarrhea, constipation, bloating, hematochezia or melena : Denies: flank pain, dysuria, urinary frequency or urinary urgency Musc: Denies: neck pain or back pain Skin/Breast: Denies: rash or pruritus PFSH ED PFSH: Medical History Diabetes Hypertension Hypothalamic hypothyroidism Interstitial lung disease Surgical History History of heart bypass surgery Social History Smoking and tobacco status: never smoked Alcohol intake: never Substance/Drug Use: never Physical Exam Const: GENERAL APPEARANCE: cooperative and comfortable ORIENTATION/ CONSCIOUSNESS: Yes awake, Yes oriented to person, Yes oriented to place and Yes oriented to time HENMT: COMMON NORMALS: normocephalic, atraumatic and hearing grossly normal bilaterally HEAD & SCALP: normocephalic and atraumatic Resp: COMMON NORMALS: normal respiratory effort, No retractions and No use of accessory muscles AUSCULTATION: crackles Cardio: COMMON NORMALS: No murmurs present (Cardio) RATE: tachycardic RHYTHM: abnormal rhythm irregularly irregular GI: COMMON NORMALS: Soft to palpation and No hepatosplenomegaly present AUSCULTATION: Yes normoactive bowel sounds PALPATION: Yes Soft to palpation, No Tenderness to palpation present (GI), No Guarding due to palpation present (GI) and Yes No hepatosplenomegaly present Extremity: COMMON NORMALS: normal to inspection, capillary refill normal and no calf tenderness GENERAL: Yes edema Neuro: SENSORIUM/ORIENTATION: Yes oriented to person, Yes oriented to place and Yes oriented to time Skin: COMMON NORMALS: no rashes or lesions noted GENERAL SKIN EXAM: no rashes or lesions noted Course Vital Signs: Vital signs: Vital Signs Temperature 98.0 F 12/09/22 10:02 Pulse Rate 110 H 12/09/22 10:02 Respiratory Rate 26 H 12/09/22 10:02 Blood Pressure 109/70 12/09/22 12:00 Pulse Oximetry 99 12/09/22 14:30 Oxygen Delivery Me thod Nasal Cannula 12/09/22 10:02 MDM - SOB/Dyspnea Medical Decision Making Care signed out to Dr. Milligan at change of shift. See final notes for diagnosis and disposition. 87-year-old gentleman with shortness of breath. He denies overt chest discomfo rt. Initially oxygen saturations were 86% on his home O2. They are 98% now. He has received IV Lasix with some diuresis in the ER. He is feeling improved. Potassium is 3.1 which will require repletion. Otherwise BMP is not remarkable. White blood cell count is 12.8, hemoglobin 10.6. Chest x-ray shows chronic interstitial change. Blood gas shows a PO2 of 69 with a PCO2 of 37 and a pH of 7.48. His delta troponin is only 4. With improvement in his symptoms post diuresis, he will be allowed home. Lab Data 12/09/22 11:00 12/09/22 11:00 Labs/Radiology: Radiology Impressions Chest X-Ray 12/09/22 10:40 IMPRESSION: 1. Extensive chronic interstitial changes noted. 2. Cardiac enlargement unchanged. No acute infiltrates noted. Laboratory Results WBC 12.8 10^3/uL (4.0-10.0) H 12/09/22 11:00 RBC 3.85 10^6/uL (4.1-5.3) L 12/09/22 11:00 Hgb 10.6 g/dL (11.7-16.6) L 12/09/22 11:00 Hct 33.7 % (42.0-52.0) L 12/09/22 11:00 MCV 87.5 fl (80-94) 12/09/22 11:00 MCH 27.5 pg (28.0-34.0) L 12/09/22 11:00 MCHC 31.5 g/dL (30.0-36.0) 12/09/22 11:00 RDW 16.7 % (12.1-15.1) H 12/09/22 11:00 Plt Count 267 10^3/cmm (130-400) 12/09/22 11:00 MPV 9.6 fL (7.4-10.4) 12/09/22 11:00 Neut % (Auto) 74.6 % 12/09/22 11:00 Lymph % (Auto) 13.6 % 12/09/22 11:00 Karnes % (Auto) 7.7 % 12/09/22 11:00 Eos % (Auto) 2.9 % 12/09/22 11:00 Baso % (Auto) 0.7 % 12/09/22 11:00 Neut # (Auto) 9.57 10^3/uL (1.8-7.7) H 12/09/22 11:00 Lymph # (Auto) 1.7 10^3/uL (0.8-4.8) 12/09/22 11:00 Karnes # (Auto) 1.0 10^3/uL (0.2-0.9) H 12/09/22 11:00 Eos # (Auto) 0.4 10^3/uL (0.0-0.8) 12/09/22 11:00 Baso # (Auto) 0.1 10^3/uL (0.0-0.1) 12/09/22 11:00 Nucleated RBC % (auto) 0 % 12/09/22 11:00 Nucleated RBCs # 0.0 /100WBC 12/09/22 11:00 Specimen Type Arterial 12/09/22 10:49 Sample Site Brachial, right 12/09/22 10:49 ABG pH 7.48 (7.35-7.45) H 12/09/22 10:49 ABG pCO2 37.1 mmHg (35-45) 12/09/22 10:49 ABG pO2 68.9 mmHg (80.0-100.0) L 12/09/22 10:49 ABG HCO3 27.8 mmol/L (22-26) H 12/09/22 10:49 ABG O2 Saturation 96.0 12/09/22 10:49 ABG Base Excess 4.2 mmol/L (-2.0-2.0) H 12/09/22 10:49 Horacio Test N/a 12/09/22 10:49 A-a O2 Gradient 18.6 mmHg (5-10) H 12/09/22 10:49 Hematocrit 35.5 % (42-52) L 12/09/22 10:49 Hgb O2 Saturation 93.7 % (95-100) L 12/09/22 10:49 Carboxyhemoglobin 1.8 %THgb (0.4-20.1) 12/09/22 10:49 Methemoglobin 0.6 % (0.4-1.5) 12/09/22 10:49 Total Hemoglobin 11.6 g/dL (14-18) L 12/09/22 10:49 Sodium 142.0 mmol/L (131-143) 12/09/22 10:49 Potassium 3.1 mmol/L (3.5-5.0) L 12/09/22 10:49 Glucose 190.0 mg/dL (70-115) H 12/09/22 10:49 Ionized Calcium 1.2 mmol/L (1.1-1.4) 12/09/22 10:49 O2 Delivery Device Nc 12/09/22 10:49 O2 Liters/Min 4.0 % 12/09/22 10:49 FiO2 36.0 % 12/09/22 10:49 Home Health Billing Specialist ID [id number] 12/09/22 10:49 Sodium 137 mmol/L (136-145) 12/09/22 11:00 Potassium 3.1 mmol/L (3.5-5.1) L 12/09/22 11:00 Chloride 99 mmol/L (98-107) 12/09/22 11:00 Carbon Dioxide 27 mmol/L (22-29) 12/09/22 11:00 Anion Gap 14.1 (5-19) 12/09/22 11:00 BUN 16 mg/dL (8-23) 12/09/22 11:00 Creatinine 1.1 mg/dL (0.7-1.2) 12/09/22 11:00 GFR Calculation Not Reportable 12/09/22 11:00 Glucose 178 mg/dL (65-115) H 12/09/22 11:00 Calculated Osmolality 290 mOsm/kg (285-295) 12/09/22 11:00 Calcium 8.5 mg/dL (8.5-10.5) 12/09/22 11:00 Total Bilirubin 0.5 mg/dL (0.15-1.2) 12/09/22 11:00 AST 16 U/L (0-40) 12/09/22 11:00 ALT 14 U/L (0-41) 12/09/22 11:00 Alkaline Phosphatase 65 U/L (40-130) 12/09/22 11:00 Troponin T Baseline 44 ng/L (0-15) H 12/09/22 11:00 Troponin T 120 Minute 48.21 ng/L (0-15) H 12/09/22 13:20 Delta Troponin T 4.21 ABS# (0-10) 12/09/22 13:20 NT-Pro-B Natriuret Pep 3267 pg/mL (0-450) H 12/09/22 11:00 Total Protein 6.6 g/dL (6.6-8.7) 12/09/22 11:00 Albumin 3.5 g/dL (3.5-5.2) 12/09/22 11:00 Globulin 3.1 g/dL (1.3-4.6) 12/09/22 11:00 Discharge Plan Discharge Patient Disposition: Home Clinical Impression: Pulmonary edema Condition: Stable Prescriptions: New furosemide 20 mg tablet 20 mg PO DAILY Qty: 5 0RF No Action nitroglycerin [Nitrostat] 0.4 mg tablet, sublingual 0.4 mg SUBLINGUAL Q5M PRN (Reason: chest pain) Qty: 30 3RF nitroglycerin [Nitro-Time] 2.5 mg capsule, extended release 2.5 mg PO BID Qty: 180 3RF Rx Instructions: allow nitrate-free interval of approx. 10-12 hrs per 24-hour period folic acid 1 mg tablet 1 mg PO DAILY 90 Days Qty: 90 1RF glipizide 10 mg tablet 10 mg PO BID 90 Days Qty: 180 1RF prednisone 10 mg tablet See Rx Instructions .ROUTE .COMPLEX Qty: 20 0RF Dose Instruction: TAKE 1 TABLET BY MOUTH EVERY DAY *start this friday* Rx Instructions: TAKE 1 TABLET BY MOUTH EVERY DAY *start this friday* Advair Diskus 100-50 mcg/dose blister with device 1 inh inhalation BID Qty: 60 5RF lisinopril-hydrochlorothiazide 20-12.5 mg tablet 1 tab PO BID metformin 850 mg tablet 850 mg PO BID pioglitazone 30 mg tablet 30 mg PO DAILY levothyroxine 112 mcg tablet 112 mcg PO DAILY Aspir-81 81 mg Tablet,Delayed Release (Dr/Ec) 81 mg PO DAILY Discharge Orders: Discharge ED (Routine); Ordered 12/09/22 Ordered By: Jassi Milligan Referrals: Cherelle Nieto MD [Primary Care Provider] - 1-3 days Patient Instructions: Pulmonary Edema (ED) Activity Restrictions/Additional Instructions: Your chest x-ray showed a mild increase in fluid on your lungs. This limits their ability to exchange oxygen well, especially in cases of pulmonary fibrosis. Take furosemide for the next 3 days to help mobilize the fluid off the lungs. You may need an increased level of oxygen supply for those 3 days. Return for worsening shortness of breath despite treatment, development of fever greater than 100, worsening mental status, chest pain, other concerning symptoms. Coding Level of Care Code ED [employer] for Chg Fwd Documented by User: Jassi Milligan DO 12/09/22 22:35 HPI - SOB/Dyspnea General: Chief Complaint: Shortness of Breath/Dyspnea Stated Complaint: sob Time Seen by Provider: 12/09/22 10:39 [facility] ED PFSH: Medical History Diabetes Hypertension Hypothalamic hypothyroidism Interstitial lung disease Surgical History History of heart bypass surgery Social History Smoking and tobacco status: never smoked Alcohol intake: never Substance/Drug Use: never Course Vital Signs: Vital signs: Vital Signs Temperature 98.0 F 12/09/22 10:02 Pulse Rate 110 H 12/09/22 10:02 Respiratory Rate 26 H 12/09/22 10:02 Blood Pressure 109/70 12/09/22 12:00 Pulse Oximetry 99 12/09/22 14:30 Oxygen Delivery Me thod Nasal Cannula 12/09/22 10:02 MDM - SOB/Dyspnea Medical Decision Making 87-year-old gentleman with shortness of breath. He denies overt chest discomfort. Initially oxygen saturations were 86% on his home O2. They are 98% now. He has received IV Lasix with some diuresis in the ER. He is feeling improved. Potassium is 3.1 which will require repletion. Otherwise BMP is not remarkable. White blood cell count is 12.8, hemoglobin 10.6. Chest x-ray shows chronic interstitial change. Blood gas shows a PO2 of 69 with a PCO2 of 37 and a pH of 7.48. His delta troponin is only 4. With improvement in his symptoms post diuresis, he will be allowed home. Lab Data 12/09/22 11:00 12/09/22 11:00 Labs/Radiology: Radiology Impressions Chest X-Ray 12/09/22 10:40 IMPRESSION: 1. Extensive chronic interstitial changes noted. 2. Cardiac enlargement unchanged. No acute infiltrates noted. Laboratory Results WBC 12.8 10^3/uL (4.0-10.0) H 12/09/22 11:00 RBC 3.85 10^6/uL (4.1-5.3) L 12/09/22 11:00 Hgb 10.6 g/dL (11.7-16.6) L 12/09/22 11:00 Hct 33.7 % (42.0-52.0) L 12/09/22 11:00 MCV 87.5 fl (80-94) 12/09/22 11:00 MCH 27.5 pg (28.0-34.0) L 12/09/22 11:00 MCHC 31.5 g/dL (30.0-36.0) 12/09/22 11:00 RDW 16.7 % (12.1-15.1) H 12/09/22 11:00 Plt Count 267 10^3/cmm (130-400) 12/09/22 11:00 MPV 9.6 fL (7.4-10.4) 12/09/22 11:00 Neut % (Auto) 74.6 % 12/09/22 11:00 Lymph % (Auto) 13.6 % 12/09/22 11:00 Karnes % (Auto) 7.7 % 12/09/22 11:00 Eos % (Auto) 2.9 % 12/09/22 11:00 Baso % (Auto) 0.7 % 12/09/22 11:00 Neut # (Auto) 9.57 10^3/uL (1.8-7.7) H 12/09/22 11:00 Lymph # (Auto) 1.7 10^3/uL (0.8-4.8) 12/09/22 11:00 Karnes # (Auto) 1.0 10^3/uL (0.2-0.9) H 12/09/22 11:00 Eos # (Auto) 0.4 10^3/uL (0.0-0.8) 12/09/22 11:00 Baso # (Auto) 0.1 10^3/uL (0.0-0.1) 12/09/22 11:00 Nucleated RBC % (auto) 0 % 12/09/22 11:00 Nucleated RBCs # 0.0 /100WBC 12/09/22 11:00 Specimen Type Arterial 12/09/22 10:49 Sample Site Brachial, right 12/09/22 10:49 ABG pH 7.48 (7.35-7.45) H 12/09/22 10:49 ABG pCO2 37.1 mmHg (35-45) 12/09/22 10:49 ABG pO2 68.9 mmHg (80.0-100.0) L 12/09/22 10:49 ABG HCO3 27.8 mmol/L (22-26) H 12/09/22 10:49 ABG O2 Saturation 96.0 12/09/22 10:49 ABG Base Excess 4.2 mmol/L (-2.0-2.0) H 12/09/22 10:49 Horacio Test N/a 12/09/22 10:49 A-a O2 Gradient 18.6 mmHg (5-10) H 12/09/22 10:49 Hematocrit 35.5 % (42-52) L 12/09/22 10:49 Hgb O2 Saturation 93.7 % (95-100) L 12/09/22 10:49 Carboxyhemoglobin 1.8 %THgb (0.4-20.1) 12/09/22 10:49 Methemoglobin 0.6 % (0.4-1.5) 12/09/22 10:49 Total Hemoglobin 11.6 g/dL (14-18) L 12/09/22 10:49 Sodium 142.0 mmol/L (131-143) 12/09/22 10:49 Potassium 3.1 mmol/L (3.5-5.0) L 12/09/22 10:49 Glucose 190.0 mg/dL (70-115) H 12/09/22 10:49 Ionized Calcium 1.2 mmol/L (1.1-1.4) 12/09/22 10:49 O2 Delivery Device Nc 12/09/22 10:49 O2 Liters/Min 4.0 % 12/09/22 10:49 FiO2 36.0 % 12/09/22 10:49 Home Health Billing Specialist ID Amh 12/09/22 10:49 Sodium 137 mmol/L (136-145) 12/09/22 11:00 Potassium 3.1 mmol/L (3.5-5.1) L 12/09/22 11:00 Chloride 99 mmol/L (98-107) 12/09/22 11:00 Carbon Dioxide 27 mmol/L (22-29) 12/09/22 11:00 Anion Gap 14.1 (5-19) 12/09/22 11:00 BUN 16 mg/dL (8-23) 12/09/22 11:00 Creatinine 1.1 mg/dL (0.7-1.2) 12/09/22 11:00 GFR Calculation Not Reportable 12/09/22 11:00 Glucose 178 mg/dL (65-115) H 12/09/22 11:00 Calculated Osmolality 290 mOsm/kg (285-295) 12/09/22 11:00 Calcium 8.5 mg/dL (8.5-10.5) 12/09/22 11:00 Total Bilirubin 0.5 mg/dL (0.15-1.2) 12/09/22 11:00 AST 16 U/L (0-40) 12/09/22 11:00 ALT 14 U/L (0-41) 12/09/22 11:00 Alkaline Phosphatase 65 U/L (40-130) 12/09/22 11:00 Troponin T Baseline 44 ng/L (0-15) H 12/09/22 11:00 Troponin T 120 Minute 48.21 ng/L (0-15) H 12/09/22 13:20 Delta Troponin T 4.21 ABS# (0-10) 12/09/22 13:20 NT-Pro-B Natriuret Pep 3267 pg/mL (0-450) H 12/09/22 11:00 Total Protein 6.6 g/dL (6.6-8.7) 12/09/22 11:00 Albumin 3.5 g/dL (3.5-5.2) 12/09/22 11:00 Globulin 3.1 g/dL (1.3-4.6) 12/09/22 11:00 Discharge Plan Discharge Patient Disposition: Home Clinical Impression: Pulmonary edema Condition: Stable Prescriptions: New furosemide 20 mg tablet 20 mg PO DAILY Qty: 5 0RF No Action nitroglycerin [Nitrostat] 0.4 mg tablet, sublingual 0.4 mg SUBLINGUAL Q5M PRN (Reason: chest pain) Qty: 30 3RF nitroglycerin [Nitro-Time] 2.5 mg capsule, extended release 2.5 mg PO BID Qty: 180 3RF Rx Instructions: allow nitrate-free interval of approx. 10-12 hrs per 24-hour period folic acid 1 mg tablet 1 mg PO DAILY 90 Days Qty: 90 1RF glipizide 10 mg tablet 10 mg PO BID 90 Days Qty: 180 1RF prednisone 10 mg tablet See Rx Instructions .ROUTE .COMPLEX Qty: 20 0RF Dose Instruction: TAKE 1 TABLET BY MOUTH EVERY DAY *start this friday* Rx Instructions: TAKE 1 TABLET BY MOUTH EVERY DAY *start this friday* Advair Diskus 100-50 mcg/dose blister with device 1 inh inhalation BID Qty: 60 5RF lisinopril-hydrochlorothiazide 20-12.5 mg tablet 1 tab PO BID metformin 850 mg tablet 850 mg PO BID pioglitazone 30 mg tablet 30 mg PO DAILY levothyroxine 112 mcg tablet 112 mcg PO DAILY Aspir-81 81 mg Tablet,Delayed Release (Dr/Ec) 81 mg PO DAILY Discharge Orders: Discharge ED (Routine); Ordered 12/09/22 Ordered By: Jassi Milligan Referrals: Cherelle Nieto MD [Primary Care Provider] - 1-3 days Patient Instructions: Pulmonary Edema (ED) Activity Restrictions/Additional Instructions: Your chest x-ray showed a mild increase in fluid on your lungs. This limits their ability to exchange oxygen well, especially in cases of pulmonary fibrosis. Take furosemide for the next 3 days to help mobilize the fluid off the lungs. You may need an increased level of oxygen supply for those 3 days. Return for worsening shortness of breath despite treatment, development of fever greater than 100, worsening mental status, chest pain, other concerning symptoms. Coding Level of Care Code ED [employer] for Guido [place]
--- NOTE | 2022-12-09 11:21 | USCV_ITS ---
Wilbert Díaz Age: 87 Gender: M : 1935 Exam Date: 12/09/2022 12:57 Ordering Phys: Rober Tracy DO Technologist: Michael Alexis [place] [facility] [place]: [place] edema PROCEDURES: The venous duplex Doppler examination of both lower extremities was performed in the standard fashion. The following venous structures were evaluated: common femoral vein, profunda vein, proximal portion of the greater saphenous vein, superficial femoral vein, and the popliteal vein. In addition, the posterior tibial and peroneal trunk were evaluated. Bilaterally, the common femoral, superficial femoral, profunda femoral, popliteal, posterior tibial, greater saphenous veins, and the peroneal trunk were identified and interrogated in the standard fashion. These veins were found to be easily compressible with spontaneous blood flow. No evidence of insufficiency or thrombus noted. FINDINGS: Normal 2-D Doppler and augmentation and compressibility throughout the lower extremity venous structures. Additional imaging through the proximal calf veins also reveals no thrombus. Limited evaluation of the greater saphenous vein is patent with no thrombus. CONCLUSIONS No evidence of right lower extremity DVT. No evidence of left lower extremity DVT. Jonathan Irwin MD (Electronically Signed) Final Date: 09 December 2022 14:52 S
[2022-12-09 11:33] LABS: Troponin(5th) Baseline 44 ng/L (0-15)
[2022-12-09 11:42] LABS: Alanine Aminotransferase 14 U/L (0-41); Albumin Level 3.5 g/dL (3.5-5.2); Alkaline Phosphatase 65 U/L (40-130); Anion Gap 14.1 (5-19); Aspartate Amino Transferase 16 U/L (0-40); Blood Urea Nitrogen 16 mg/dL (8-23); Calcium 8.5 mg/dL (8.5-10.5); Carbon Dioxide 27 mmol/L (22-29); Chloride 99 mmol/L (98-107); Globulin 3.1 g/dL (1.3-4.6); Glucose 178 mg/dL (65-115); NT Pro B Type Natriuretic Pept 3267 pg/mL (0-450); Osmolality Calculated 290 mOsm/kg (285-295); Potassium 3.1 mmol/L (3.5-5.1); Sodium 137 mmol/L (136-145); Total Bilirubin 0.5 mg/dL (0.15-1.2); Total Protein 6.6 g/dL (6.6-8.7)
--- NOTE | 2022-12-09 12:39 | ECG_ITS ---
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 Measurements Intervals [place] Rate: 103 P: 0 FL: 0 QRS: -26 QRSD: 114 T: 173 QT: 384 QTc: 503 Interpretive Statements ATRIAL FIBRILLATION WITH RAPID VENTRICULAR RESPONSE BORDERLINE LEFT AXIS DEVIATION [QRS AXIS < -20] MODERATE INTRAVENTRICULAR CONDUCTION DELAY [110+ ms QRS DURATION] MODERATE VOLTAGE CRITERIA FOR LVH, CONSIDER NORMAL VARIANT [MEETS CRITERIA IN ONE OF: R(aVL), S(V1), R(V5), R(V5/V6)+S(V1)] NONSPECIFIC ST & T-WAVE ABNORMALITY Compared to ECG 12/09/2022 10:13:57 Intraventricular conduction delay now present T-wave abnormality still present Electronically Signed On 12-09-2022 14:34:14 CDT by Vern Contreras M.D. [email or web address]
[2022-12-09] MEDS: ALPRAZolam 0.5 mg Tablet PO (12:42)
[2022-12-09 14:03] LABS: Troponin 5 2HR 48.21 ng/L (0-15)
[2022-12-09 14:04] LABS: Troponin 5 2HR Delta 4.21 ABS# (0-10)
[2022-12-09] MEDS: potassium chloride oral liq 20 mEq/15 mL UDC 40 MEQ PO (15:00)
== END 2022-12-09 15:17 | disposition home or self-care (01) ==
PROVIDERS: Family Medicine; Emergency Provider Emergency Medicine; PCP Family Medicine
DX: J81.1 Chronic pulmonary edema (principal); Z79.82 Long term (current) use of aspirin; E11.9 Type 2 diabetes mellitus without complications; I10 Essential (primary) hypertension
CPT/HCPCS: 36415; 36600; 71045; 80051; 80053; 82330; 82805; 83880; 84484; 85025; 93005; 93970; 96374; 99285; J1940

== ENCOUNTER 2022-12-14 14:22 | Observation (INO) | payer MEDICARE, MEDICAID, SELFPAY ==
[2022-12-14] VITALS (8 sets, daily range): BP systolic 112–130; BP diastolic 64–91; PULSE 87–105; RESP 16–22; TEMP 36.2–36.7; O2SAT 94–98; BMI 35.6
--- NOTE | 2022-12-14 14:54 | ED_ITS ---
Documented by User: DARIUSZ Bronson 12/15/22 07:09 HPI - Abdominal Pain General: Chief Complaint: Abdominal Pain Stated Complaint: ABD PAIN Time Seen by Provider: 12/14/22 14:44 History of Present Illness: Patient is an 87-year-old male who comes to the ED via EMS with abdominal pain and nausea. Patient was seen here several days ago back on December 10 for shortness of breath and cough. Past medical history of diabetes, hypertension and interstitial lung disease and patient is on 3 L of oxygen at home. Patient says symptoms started within the last 24 hours. His abdominal pain he rates a 10 out of 10 and is located in the left lower quadrant of the abdomen. Denies any fevers, emesis, diarrhea, constipation or blood in stool. Patient received a dose of nausea medicine while in route here to the ED and he says his nausea is now resolved. Patient is also complaining of having a cough. Denies any chest pain or shortness of breath. Associated Symptoms: Reports nausea; Denies chills, constipation, diarrhea, dysuria, fever(s), hematochezia, hematuria and vomiting Review of Systems Const: Denies: fever(s), chills or fatigue Eyes: Denies: change in vision or eye discomfort ENMT: Denies: throat pain, odynophagia, nasal discharge or nasal congestion Card: Denies: chest pain, palpitations, edema, swelling of feet/ankles, dyspnea on exertion or orthopnea Resp: Reports: non-productive cough; Denies: dyspnea or productive cough GI: Reports: abdominal pain and nausea; Denies: vomiting, diarrhea, constipation or hematochezia : Denies: flank pain, difficulty urinating, dysuria or hematuria Musc: Denies: neck pain, back pain or extremity swelling Skin/Breast: Denies: rash or new lesions Neuro: Denies: headache(s), numbness in extremities or weakness in extremities PFS ED PFSH: Medical History (Updated 12/14/22 @ 22:24 by Ruddy Goldberg MD) Diabetes Hypercholesteremia Hypertension Hypothalamic hypothyroidism Interstitial lung disease Venous insufficiency Surgical History History of heart bypass surgery Social History (Updated 12/14/22 @ 22:18 by Ruddy Goldberg MD) Smoking and tobacco status: former smoker Alcohol intake: never Substance/Drug Use: never Caregiver/support person: Yes Lives independently: Yes Household members: spouse Housing: House Marital status: Physical Exam Const: COMMON NORMALS: patient oriented x3 and alert GENERAL APPEARANCE: cooperative HENMT: COMMON NORMALS: normocephalic HEAD & SCALP: normocephalic MOUTH: Normal oral and palatal mucosa present THROAT: posterior oropharynx normal and uvula midline Neck/C-Spine: COMMON NORMALS: supple GENERAL: Yes normal visual inspection Resp: COMMON NORMALS: normal respiratory effort, No retractions and No use of accessory muscles AUSCULTATION: crackles Laterality: bilateral (bases) Cardio: COMMON NORMALS: regular rate, regular rhythm, S1 normal heart sound present, S2 normal heart sound present, No gallops present (Cardio), No clicks present (Cardio), No murmurs present (Cardio) and Peripheral pulses 2+ throughout RATE: regular rate RHYTHM: regular rhythm HEART SOUNDS: S1 normal heart sound present and S2 normal heart sound present PERIPHERAL PU LSES: Peripheral pulses 2+ throughout GI: COMMON NORMALS: Normal to inspection, nondistended, normoactive bowel sounds present, Soft to palpation, non-tender and no masses PALPATION: Yes Soft to palpation : COMMON NORMALS: Yes no CVA tenderness BLADDER/KIDNEY EXAM: Yes no CVA tenderness Back/Pelvis: COMMON NORMALS: no CVA tenderness Extremity: COMMON NORMALS: normal to inspection Neuro: COMMON NORMALS: patient oriented x3 SENSORIUM/ORIENTATION: Yes alert GAIT: Yes Normal gait present Skin: GENERAL SKIN EXAM: dry skin Course Vital Signs: Vital signs: Vital Signs Temperature 98.5 F 12/15/22 03:32 Pulse Rate 81 12/15/22 07:25 Respiratory Rate 16 12/15/22 07:25 Blood Pressure 111/51 12/15/22 03:32 Pulse Oximetry 96 12/15/22 07:25 Oxygen Delivery Me thod Nasal Cannula 12/15/22 07:25 Oxygen Flow Rate 2 12/15/22 07:25 MDM - Abdominal Pain Lab Data I reviewed the patient's lab results. 12/15/22 05:25 12/15/22 05:25 Labs/Radiology: Radiology Impressions Chest X-Ray 12/14/22 15:02 IMPRESSION: Ill-defined opacities in the left mid and lower lung suspicious for pneumonia. Abdomen/Pelvis CT 12/14/22 15:39 IMPRESSION: 1. Findings consistent with acute diverticulitis. 2. There is mucosal thickening of the distal esophagus and gastroesophageal junction consistent with nonspecific esophagitis. Follow-up to exclude neoplasm as clinically warranted. 3. Fatty infiltration of the liver. 4. There are ovoid densities in the posterior mediastinum along right side of the esophagus likely representing lymph nodes, only partially visualized. Laboratory Results WBC 10.3 10^3/uL (4.0-10.0) H 12/14/22 14:45 RBC 4.05 10^6/uL (4.1-5.3) L 12/14/22 14:45 Hgb 11.1 g/dL (11.7-16.6) L 12/14/22 14:45 Hct 36.2 % (42.0-52.0) L 12/14/22 14:45 MCV 89.4 fl (80-94) 12/14/22 14:45 MCH 27.4 pg (28.0-34.0) L 12/14/22 14:45 MCHC 30.7 g/dL (30.0-36.0) 12/14/22 14:45 RDW 16.4 % (12.1-15.1) H 12/14/22 14:45 Plt Count 249 10^3/cmm (130-400) 12/14/22 14:45 MPV 9.5 fL (7.4-10.4) 12/14/22 14:45 Neut % (Auto) 66.2 % 12/14/22 14:45 Lymph % (Auto) 18.8 % 12/14/22 14:45 Dunn % (Auto) 9.7 % 12/14/22 14:45 Eos % (Auto) 4.0 % 12/14/22 14:45 Baso % (Auto) 0.8 % 12/14/22 14:45 Neut # (Auto) 6.83 10^3/uL (1.8-7.7) 12/14/22 14:45 Lymph # (Auto) 1.9 10^3/uL (0.8-4.8) 12/14/22 14:45 Dunn # (Auto) 1.0 10^3/uL (0.2-0.9) H 12/14/22 14:45 Eos # (Auto) 0.4 10^3/uL (0.0-0.8) 12/14/22 14:45 Baso # (Auto) 0.1 10^3/uL (0.0-0.1) 12/14/22 14:45 Nucleated RBC % (auto) 0 % 12/14/22 14:45 Nucleated RBCs # 0.0 /100WBC 12/14/22 14:45 Sodium 138 mmol/L (136-145) 12/14/22 14:45 Potassium 3.1 mmol/L (3.5-5.1) L 12/14/22 14:45 Chloride 96 mmol/L (98-107) L 12/14/22 14:45 Carbon Dioxide 30 mmol/L (22-29) H 12/14/22 14:45 Anion Gap 15.1 (5-19) 12/14/22 14:45 BUN 17 mg/dL (8-23) 12/14/22 14:45 Creatinine 1.0 mg/dL (0.7-1.2) 12/14/22 14:45 GFR Calculation Not Reportable 12/14/22 14:45 Glucose 124 mg/dL (65-115) H 12/14/22 14:45 Calculated Osmolality 289 mOsm/kg (285-295) 12/14/22 14:45 Calcium 8.9 mg/dL (8.5-10.5) 12/14/22 14:45 Total Bilirubin 0.5 mg/dL (0.15-1.2) 12/14/22 14:45 AST 19 U/L (0-40) 12/14/22 14:45 ALT 11 U/L (0-41) 12/14/22 14:45 Alkaline Phosphatase 59 U/L (40-130) 12/14/22 14:45 Total Protein 7.3 g/dL (6.6-8.7) 12/14/22 14:45 Albumin 3.6 g/dL (3.5-5.2) 12/14/22 14:45 Globulin 3.7 g/dL (1.3-4.6) 12/14/22 14:45 Lipase 25 U/L (13-60) 12/14/22 14:45 Urine Color Yellow (Yellow) 12/14/22 16:29 Urine Appearance Clear (CLEAR) 12/14/22 16:29 Urine pH 6 (5-7) 12/14/22 16:29 Ur Specific Wade 1.010 (1.005-1.030) 12/14/22 16:29 Urine Protein Neg (Negative) 12/14/22 16:29 Urine Glucose (UA) Norm (Normal) 12/14/22 16:29 Urine Ketones Negative (Negative) 12/14/22 16:29 Urine Blood Neg (Negative) 12/14/22 16:29 Urine Nitrate Negative (Negative) 12/14/22 16: Urine Bilirubin Neg (Negative) 12/14/22 16: Urine Urobilinogen Norm mg/dL (Negative) 12/14/22 16:29 Ur Leukocyte Esterase Trace (Negative) H 12/14/22 16:29 Urine RBC 0-4 /hpf (0-2) H 12/14/22 16:29 Urine WBC 10-15 /hpf (0-5) H 12/14/22 16:29 Ur Squamous Epith Cells 0-4 /hpf (0-5) H 12/14/22 16:29 Amorphous Sediment Not Reportable 12/14/22 16:29 Urine Bacteria Trace /hpf (NONE) 12/14/22 16:29 Discharge Plan Discharge Patient Disposition: Admitted As Inpatient Admit Provider: Ruddy Goldberg Clinical Impression: Diverticulitis Condition: Stable Coding Level of Care Code ED Radiology Interventional Physician for Chg Fwd Documented by User: Jassi Milligan DO 12/14/22 19:31 HPI - Abdominal Pain General: Chief Complaint: Abdominal Pain Stated Complaint: ABD PAIN Time Seen by Provider: 12/14/22 14:44 PFSH ED PFSH: Medical History (Updated 12/14/22 @ 22:24 by Ruddy Goldberg MD) Diabetes Hypercholesteremia Hypertension Hypothalamic hypothyroidism Interstitial lung disease Venous insufficiency Surgical History History of heart bypass surgery Social History (Updated 12/14/22 @ 22:18 by Ruddy Goldberg MD) Smoking and tobacco status: former smoker Alcohol intake: never Substance/Drug Use: never Caregiver/support person: Yes Lives independently: Yes Household members: spouse Housing: House Marital status: Course Vital Signs: Vital signs: Vital Signs Temperature 98.5 F 12/15/22 03:32 Pulse Rate 81 12/15/22 07:25 Respiratory Rate 16 12/15/22 07:25 Blood Pressure 111/51 12/15/22 03:32 Pulse Oximetry 96 12/15/22 07:25 Oxygen Delivery Me thod Nasal Cannula 12/15/22 07:25 Oxygen Flow Rate 2 12/15/22 07:25 MDM - Abdominal Pain Medical Decision Making 87-year-old male gentleman here complaining of weakness, nausea, and abdominal pain. His white blood cell count is 10. Hemoglobin 11. Potassium is 3.1. He has diverticulitis on CT scan. Left mid and lower lung were suspicious for pneumonia on chest x-ray, but confirm no pneumonia on CT scan. Spoke with hospitalist for admit. The patient cannot care for himself at home, and is quite weak. He has received IV Cipro and Flagyl in the ER as well as IV fluid. He will be admitted. Lab Data 12/15/22 05:25 12/15/22 05:25 Labs/Radiology: Radiology Impressions Chest X-Ray 12/14/22 15:02 IMPRESSION: Ill-defined opacities in the left mid and lower lung suspicious for pneumonia. Abdomen/Pelvis CT 12/14/22 15:39 IMPRESSION: 1. Findings consistent with acute diverticulitis. 2. There is mucosal thickening of the distal esophagus and gastroesophageal junction consistent with nonspecific esophagitis. Follow-up to exclude neoplasm as clinically warranted. 3. Fatty infiltration of the liver. 4. There are ovoid densities in the posterior mediastinum along right side of the esophagus likely representing lymph nodes, only partially visualized. Laboratory Results WBC 10.3 10^3/uL (4.0-10.0) H 12/14/22 14:45 RBC 4.05 10^6/uL (4.1-5.3) L 12/14/22 14:45 Hgb 11.1 g/dL (11.7-16.6) L 12/14/22 14:45 Hct 36.2 % (42.0-52.0) L 12/14/22 14:45 MCV 89.4 fl (80-94) 12/14/22 14:45 MCH 27.4 pg (28.0-34.0) L 12/14/22 14:45 MCHC 30.7 g/dL (30.0-36.0) 12/14/22 14:45 RDW 16.4 % (12.1-15.1) H 12/14/22 14:45 Plt Count 249 10^3/cmm (130-400) 12/14/22 14:45 MPV 9.5 fL (7.4-10.4) 12/14/22 14:45 Neut % (Auto) 66.2 % 12/14/22 14:45 Lymph % (Auto) 18.8 % 12/14/22 14:45 Dunn % (Auto) 9.7 % 12/14/22 14:45 Eos % (Auto) 4.0 % 12/14/22 14:45 Baso % (Auto) 0.8 % 12/14/22 14:45 Neut # (Auto) 6.83 10^3/uL (1.8-7.7) 12/14/22 14:45 Lymph # (Auto) 1.9 10^3/uL (0.8-4.8) 12/14/22 14:45 Dunn # (Auto) 1.0 10^3/uL (0.2-0.9) H 12/14/22 14:45 Eos # (Auto) 0.4 10^3/uL (0.0-0.8) 12/14/22 14:45 Baso # (Auto) 0.1 10^3/uL (0.0-0.1) 12/14/22 14:45 Nucleated RBC % (auto) 0 % 12/14/22 14:45 Nucleated RBCs # 0.0 /100WBC 12/14/22 14:45 Sodium 138 mmol/L (136-145) 12/14/22 14:45 Potassium 3.1 mmol/L (3.5-5.1) L 12/14/22 14:45 Chloride 96 mmol/L (98-107) L 12/14/22 14:45 Carbon Dioxide 30 mmol/L (22-29) H 12/14/22 14:45 Anion Gap 15.1 (5-19) 12/14/22 14:45 BUN 17 mg/dL (8-23) 12/14/22 14:45 Creatinine 1.0 mg/dL (0.7-1.2) 12/14/22 14:45 GFR Calculation Not Reportable 12/14/22 14:45 Glucose 124 mg/dL (65-115) H 12/14/22 14:45 Calculated Osmolality 289 mOsm/kg (285-295) 12/14/22 14:45 Calcium 8.9 mg/dL (8.5-10.5) 12/14/22 14:45 Total Bilirubin 0.5 mg/dL (0.15-1.2) 12/14/22 14:45 AST 19 U/L (0-40) 12/14/22 14:45 ALT 11 U/L (0-41) 12/14/22 14:45 Alkaline Phosphatase 59 U/L (40-130) 12/14/22 14:45 Total Protein 7.3 g/dL (6.6-8.7) 12/14/22 14:45 Albumin 3.6 g/dL (3.5-5.2) 12/14/22 14:45 Globulin 3.7 g/dL (1.3-4.6) 12/14/22 14:45 Lipase 25 U/L (13-60) 12/14/22 14:45 Urine Color Yellow (Yellow) 12/14/22 16:29 Urine Appearance Clear (CLEAR) 12/14/22 16:29 Urine pH 6 (5-7) 12/14/22 16:29 Ur Specific Wade 1.010 (1.005-1.030) 12/14/22 16:29 Urine Protein Neg (Negative) 12/14/22 16:29 Urine Glucose (UA) Norm (Normal) 12/14/22 16:29 Urine Ketones Negative (Negative) 12/14/22 16:29 Urine Blood Neg (Negative) 12/14/22 16:29 Urine Nitrate Negative (Negative) 12/14/22 16:29 Urine Bilirubin Neg (Negative) 12/14/22 16:29 Urine Urobilinogen Norm mg/dL (Negative) 12/14/22 16:29 Ur Leukocyte Esterase Trace (Negative) H 12/14/22 16:29 Urine RBC 0-4 /hpf (0-2) H 12/14/22 16:29 Urine WBC 10-15 /hpf (0-5) H 12/14/22 16:29 Ur Squamous Epith Cells 0-4 /hpf (0-5) H 12/14/22 16:29 Amorphous Sediment Not Reportable 12/14/22 16:29 Urine Bacteria Trace /hpf (NONE) 12/14/22 16:29 Discharge Plan Discharge Patient Disposition: Admitted As Inpatient Admit Provider: Ruddy Goldberg Clinical Impression: Diverticulitis Condition: Stable Coding Level of Care Code ED Radiology Interventional Physician for Guido [place]
[2022-12-14 14:55] LABS: Basophils # 0.1 10^3/uL (0.0-0.1); Basophils % 0.8 %; Eosinophils # 0.4 10^3/uL (0.0-0.8); Hematocrit 36.2 % (42.0-52.0); Hemoglobin 11.1 g/dL (11.7-16.6); Lymphocytes # 1.9 10^3/uL (0.8-4.8); Lymphocytes % 18.8 %; Mean Corpuscular HGB Conc 30.7 g/dL (30.0-36.0); Mean Corpuscular Hemoglobin 27.4 pg (28.0-34.0); Mean Corpuscular Volume 89.4 fl (80-94); Mean Platelet Volume 9.5 fL (7.4-10.4); Monocytes % 9.7 %; Neutrophils # 6.83 10^3/uL (1.8-7.7); Neutrophils % 66.2 %; Nucleated Red Blood Cells % 0 %; Platelet Count 249 10^3/cmm (130-400); Red Blood Count 4.05 10^6/uL (4.1-5.3); Red Cell Distribution Width 16.4 % (12.1-15.1); White Blood Count 10.3 10^3/uL (4.0-10.0)
--- NOTE | 2022-12-14 15:02 | XRR_ITS ---
PROCEDURE INFORMATION: Exam: XR Chest Exam date and time: 12/14/2022 3:04 PM Age: 87 years old Clinical indication: Cough; Prior surgery; Surgery type: Cabg TECHNIQUE: Imaging protocol: Radiologic exam of the chest. Views: 1 view. COMPARISON: CR XR chest 1V portable [id number] 12/09/2022 11:07 AM FINDINGS: Lungs: Ill-defined opacities in the left mid and lower lung. Pleural spaces: No apparent pleural effusion. No pneumothorax. Heart/Mediastinum: Mild cardiomegaly. Bones/joints: Sternotomy wires noted. Visualized osseous structures are intact. XR/XR chest 1V portable [id number] IMPRESSION: Ill-defined opacities in the left mid and lower lung suspicious for pneumonia.
[2022-12-14 15:14] LABS: Alanine Aminotransferase 11 U/L (0-41); Albumin Level 3.6 g/dL (3.5-5.2); Alkaline Phosphatase 59 U/L (40-130); Anion Gap 15.1 (5-19); Aspartate Amino Transferase 19 U/L (0-40); Blood Urea Nitrogen 17 mg/dL (8-23); Calcium 8.9 mg/dL (8.5-10.5); Carbon Dioxide 30 mmol/L (22-29); Chloride 96 mmol/L (98-107); Globulin 3.7 g/dL (1.3-4.6); Glucose 124 mg/dL (65-115); Lipase 25 U/L (13-60); Osmolality Calculated 289 mOsm/kg (285-295); Potassium 3.1 mmol/L (3.5-5.1); Sodium 138 mmol/L (136-145); Total Bilirubin 0.5 mg/dL (0.15-1.2); Total Protein 7.3 g/dL (6.6-8.7)
--- NOTE | 2022-12-14 15:39 | CTR_ITS ---
PROCEDURE INFORMATION: Exam: CT Abdomen And Pelvis With Contrast Exam date and time: 12/14/2022 4:11 PM Age: 87 years old Clinical indication: Abdominal pain; Localized; Left lower quadrant (llq); Additional info: Left lower quadrant abdominal pain TECHNIQUE: Imaging protocol: Computed tomography of the abdomen and pelvis with contrast. Radiation optimization: All CT scans at this facility use at least one of these dose optimization techniques: automated exposure control; mA and/or kV adjustment per patient size (includes targeted exams where dose is matched to clinical indication); or iterative reconstruction. Contrast material: OMNI 350; Contrast volume: 75 ml; Contrast route: INTRAVENOUS (IV); REPORTING DATA: Count of CT and Cardiac NM exams in prior 12 months: This patient has received [address] and 0 known cardiac nuclear medicine studies in the 12 months prior to the current study. COMPARISON: CR XR abdomen min 2V [id number] 10/21/2016 1:09 PM RADIATION DOSE METRICS: Total DLP (mGy-cm): 911.33 FINDINGS: Lungs: There are fibrotic changes and scarring at the lung bases. There are pulmonary parenchymal calcifications consistent with remote granulomatous organism exposure. Heart: Cardiomegaly. Coronary arteries: Multivessel atherosclerotic disease which involves the coronary arteries. Mediastinal space: There is mucosal thickening of the distal esophagus and gastroesophageal junction. Liver: There is a diffuse decrease in hepatic parenchymal density, consistent with fatty infiltration. Gallbladder and bile ducts: There is a calcified stone in the gallbladder. Pancreas: Mild pancreatic atrophy. Spleen: Normal. No splenomegaly. Adrenal glands: Normal. No mass. Kidneys and ureters: There are bilateral renal cysts with benign features the larger of which measures 0.4 cm at the upper pole the left kidney. Follow-up is not necessary for these lesions. Stomach and bowel: There are multiple colonic diverticula. Associated mucosal thickening and mesenteric inflammatory stranding is present at the junction of the distal descending and sigmoid colon consistent with diverticulitis. No large abscess formation is seen. Appendix: A normal appendix is identified. Intraperitoneal space: See Stomach and bowel finding. Vasculature: Unremarkable. No abdominal aortic aneurysm. Lymph nodes: Ovoid densities in the posterior mediastinum along the right side of the esophagus likely represent lymph nodes and are only partially visualized. Urinary bladder: Unremarkable as visualized. Reproductive: Unremarkable as visualized. Bones/joints: There are post sternotomy changes. Degenerative changes in the visualized spine. Multilevel lumbar broad-based disc osteophyte complexes contribute to canal and bilateral neural foraminal narrowing. Soft tissues: Unremarkable. CT/CT abdomen pelvis w con* [id number] IMPRESSION: 1. Findings consistent with acute diverticulitis. 2. There is mucosal thickening of the distal esophagus and gastroesophageal junction consistent with nonspecific esophagitis. Follow-up to exclude neoplasm as clinically warranted. 3. Fatty infiltration of the liver. 4. There are ovoid densities in the posterior mediastinum along right side of the esophagus likely representing lymph nodes, only partially visualized.
[2022-12-14] MEDS: iohexol 350 mg/mL 500 mL Btl (per mL) IV (16:31)
[2022-12-14 16:40] LABS: Add Urine Culture? No; Add Urine Microscopic? YES; Bacteria Urine TRACE /hpf; Bilirubin Urine Neg (Negative); Blood Urine Neg (Negative); Glucose Urine UA Norm (Normal); Ketones Urine Negative (Negative); Leukocyte Esterase Urine Trace (Negative); Nitrate Urine Negative (Negative); Protein Urine Neg (Negative); RBC Urine 0-4 /hpf (0-2); Squamous Epithelial Cell Urine 0-4 /hpf (0-5); Urine Appearance Clear (CLEAR); Urine Color Yellow (Yellow); Urobilinogen Urine Norm (Negative); pH Urine 6 (5-7)
[2022-12-14] MEDS: metroNIDAZOLE IV 500 MG/100 ML PREMIX 100 MG IV (19:59)
[2022-12-14] MEDS: sodium chloride 0.9% 1,000 ML 999 ML IV (19:59)
[2022-12-14] MEDS: ciprofloxacin 400 MG/200 ML PREMIX 200 MG IV (20:00)
--- NOTE | 2022-12-14 20:05 | PM.HP ---
Providers/Chief Complaint Admitting Physician: Ruddy Goldberg MD Primary Care Provider: Cherelle Nieto MD Chief Complaint: ABD PAIN History of Present Illness Wilbert Díaz is a 87 year old male with past medical history of interstitial lung disease, diastolic heart failure, moderate aortic stenosis, post CABG, hypothyroidism, hypertension, former smoker who presents to the ER today because of abdominal cramps which has been happening for last 2 to 3 days to a week but worsening today morning along with constipation. Complains of nausea but no vomiting along with poor oral intake. Denies any fever at home or sick contacts. States his health has been on a downward trend for last 2 to 3 months since he has been diagnosed of pulmonary problems and has been feeling weaker and weaker. Chronically on 2 to 3 L of oxygen. Blood work in the ER showed white count of 10.3, hemoglobin of 11, chemistry showing a sodium 138, potassium of 3.1, creatinine of 1, UA negative for nitrite but positive for leuk esterase. CT abdomen pelvis as below. Review of Systems General: Reports: 10 or more systems reviewed and unremarkable except in HPI and below Const: Denies: fever(s), chills, body aches, change in appetite, change in weight, malaise, night sweats, diaphoresis, change in sleep pattern, daytime sleepiness or snoring Eyes: Denies: change in vision, blurry vision, photophobia, eye discomfort or eye discharge ENMT: Denies: throat pain, enlarged tonsils, hoarseness, mouth pain, oral sores, dry mouth, tinnitus, nasal congestion or post nasal drip Card: Denies: chest pain, palpitations, irregular heart rhythm, edema, swelling of feet/ankles, lightheadedness, syncope, pre-syncope, dyspnea on exertion, orthopnea, leg pain with exertion or acrocyanosis Resp: Denies: dyspnea, productive cough, non-productive cough, wheezing, stridor, pain on inspiration, change in phlegm color, hemoptysis or chest congestion GI: Denies: abdominal pain, nausea, vomiting, hematemesis, coffee ground emesis, dysphagia, heartburn, diarrhea, constipation, bloating, GI cramping, change in bowel habits, pain on defecation, hematochezia or melena : Denies: flank pain, difficulty urinating, dysuria, urinary frequency, urinary urgency, urinary hesitancy, urinary dribbling, difficulty starting urination, change in urine stream, nocturia or hematuria Musc: Denies: neck pain, back pain, extremity pain, joint pain, joint swelling, joint redness, joint stiffness or limited range of motion Neuro: Denies: headache(s), numbness in extremities, weakness in extremities, sensory changes, lack of coordination, difficulty walking, frequent falls, dizziness, vertigo, confusion, Slurred speech present, difficulty communicating thoughts or seizure-like activity Psych: Denies: anxiety, depression, mood swings, panic attacks, hopelessness or irritability Endo: Denies: polyuria, polydipsia, tired all the time, cold intolerance, excessive sweating, flushing or heat intolerance Stefan/Lymph: Denies: easy bruising or easy bleeding All/Imm: Denies: tongue swelling, facial swelling or acute wheezing Medications/Allergies Home Medications Medication Instructions Recorded Confirmed Last Taken Type nitroglycerin 0.4 mg sublingual 0.4 mg sublingual Q5M PRN chest 07/22/22 12/09/22 Unknown Rx tablet (Nitrostat) pain #30 tabs nitroglycerin 2.5 mg 2.5 mg PO BID #180 caps 08/15/22 12/09/22 12/08/22 Rx capsule,extended release (Nitro-Time) folic acid 1 mg tablet 1 mg PO DAILY 90 days #90 tabs 09/03/22 12/09/22 12/08/22 Rx glipizide 10 mg tablet 10 mg PO BID 90 days #180 tabs 09/03/22 12/09/22 12/08/22 Rx levothyroxine 112 mcg tablet 112 mcg PO DAILY 09/23/22 12/09/22 12/08/22 History lisinopril 20 1 tab PO BID 09/23/22 12/09/22 12/08/22 History mg-hydrochlorothiazide 12.5 mg tablet metformin 850 mg tablet 850 mg PO BID 09/23/22 12/09/22 12/08/22 History pioglitazone 30 mg tablet 30 mg PO DAILY 09/23/22 12/09/22 12/08/22 History fluticasone 100 mcg-salmeterol 50 1 inh inhalation BID #60 ea 10/15/22 12/09/22 Unknown Rx mcg/dose blistr powdr for inhalation (Advair Diskus) prednisone 10 mg tablet See Rx Instructions .Route 10/15/22 12/09/22 Unknown Rx .COMPLEX #20 tabs aspirin 81 mg tablet,delayed 81 mg PO DAILY 12/09/22 12/09/22 12/08/22 History release furosemide 20 mg tablet 20 mg PO DAILY #5 tabs 12/09/22 Unknown Rx ondansetron HCl 4 mg tablet 4 mg PO Q8H PRN nausea and 12/13/22 Unknown Rx vomiting #20 tabs Allergies Allergy/AdvReac Type Severity Reaction Status Date / Time No Known Allergies Allergy Verified 12/09/22 09:53 PFSH Acute PFSH: Medical History (Updated 12/14/22 @ 22:24 by Ruddy Goldberg MD) Diabetes Hypercholesteremia Hypertension Hypothalamic hypothyroidism Interstitial lung disease Venous insufficiency Surgical History History of heart bypass surgery Social History (Updated 12/14/22 @ 22:18 by Ruddy Goldberg MD) Smoking and tobacco status: former smoker Alcohol intake: never Substance/Drug Use: never Caregiver/support person: Yes Lives independently: Yes Household members: spouse Housing: House Marital status: Vitals/I&O/Wt Last Vital Signs Pulse 97 12/14/22 17:12 Resp 18 12/14/22 17:12 BP 129/89 12/14/22 15:00 Pulse Ox 98 12/14/22 17:12 O2 Del Method Nasal Cannula 12/14/22 17:12 O2 Flow Rate 3 12/14/22 17:12 Physical Exam Narrative: General: No acute distress, AO x3, on 3 L oxygen supplementation, obese HEENT: PERRLA, pupils bilaterally equal and reactive Chest: Normal vesicular breath sounds, no added sounds, equal good air entry bilaterally CVS: S1-S2 regular, no murmurs, no tachycardia, no gallops, no rubs Abdomen: Soft, nontender, no organomegaly, bowel sounds present Neuro: No focal deficits, no facial deformity, AO x3, power 5/5 in all limbs Data 12/14/22 14:45 12/14/22 14:45 Other Labs: Radiology Impressions Chest X-Ray 12/14/22 15:02 IMPRESSION: Ill-defined opacities in the left mid and lower lung suspicious for pneumonia. Abdomen/Pelvis CT 12/14/22 15:39 IMPRESSION: 1. Findings consistent with acute diverticulitis. 2. There is mucosal thickening of the distal esophagus and gastroesophageal junction consistent with nonspecific esophagitis. Follow-up to exclude neoplasm as clinically warranted. 3. Fatty infiltration of the liver. 4. There are ovoid densities in the posterior mediastinum along right side of the esophagus likely representing lymph nodes, only partially visualized. A&P Assessment and plan (1) Diverticulitis: Abdominal pain most likely in setting of diverticulitis. Seen on CT abdomen pelvis. Nausea and vomiting could be secondary to GERD. He was recently started on prednisone for pulmonary fibrosis. CT abdomen pelvis concerning for gastritis as well. Start on Zosyn for now. Check blood cultures, stool studies, lactate, procalcitonin. Zofran as needed, Protonix IV daily. Hold off on IV fluids for now given history of diastolic heart failure in the past. Hold off on diuretics. (2) Hypokalemia: Most likely in setting of vomiting. Repeat with in the ER. Recheck in AM. (3) Abdominal pain: (4) Nausea and vomiting: (5) Interstitial lung disease: Chronic history. No acute exacerbation. DuoNebs every 6 hour as needed. (6) History of heart bypass surgery: No active chest pain. Check A1c, lipid panel. Continue home dose of aspirin. Will restart statin as per lipid panel. (7) Hypothalamic hypothyroidism: Check TSH. Continue home dose of levothyroxine. (8) Hypertension: Goal blood pressure less than 140/90 mmHg. At home takes combination of lisinopril, hydrochlorothiazide along with Lasix. Hold off on antihypertensives for now. Restart as per goal blood pressures. Qualifiers: Hypertension type: essential hypertension Qualified Code(s): I10 - Essential (primary) hypertension (9) Diabetes: Stop OHA's. A1c. Carb consistent diet. Insulin sliding scale at moderate dose protocol. Qualifiers: Diabetes mellitus type: type 2 Diabetes mellitus director intelligence analysis programs insulin use: without director intelligence analysis programs use Diabetes mellitus complication status: with hyperglycemia Qualified Code(s): E11.65 - Type 2 diabetes mellitus with hyperglycemia (10) Esophagitis: (11) GERD (gastroesophageal reflux disease): Plan History of diastolic heart failure: No acute exacerbation. Last echocardiogram showed an EF of 50 to 55%, moderate aortic stenosis, mild MR, grade 2 diastolic dysfunction. Continue to monitor. Clear liquid carb consistent diet. Advance if no nausea and vomiting in AM. Protonix for PUD prophylaxis. Heparin 5000 every 8 hourly for DVT prophylaxis. Discharge planning: Patient lives with his who is wheelchair-bound. States lately given advanced age and lung issues they have been finding it difficult to take care of the catheter at home. He is interested in SNF as possible. Case management consultation. PT evaluation. Attestations Medical Necessity Statement*: Admission for more than 2 midnights for management of nausea and vomiting leading to poor oral intake in a patient who is diabetic with history of pulmonary fibrosis and diagnosed of diverticulitis Diagnoses Diverticulitis K57.92 Hypokalemia E87.6 Abdominal pain R10.9 Nausea and vomiting R11.2 Interstitial lung disease J84.9 History of heart bypass surgery Z95.1 Hypothalamic hypothyroidism E03.8 Hypertension I10 Hypertension type: essential hypertension Diabetes E11.65 Diabetes mellitus type: type 2 Diabetes mellitus usp insulin use: without director intelligence analysis programs use Diabetes mellitus complication status: with hyperglycemia Esophagitis K20.90 GERD (gastroesophageal reflux disease) K21.9
[2022-12-14 21:13] LABS: Procalcitonin 0.06 ng/mL (0-0.5)
[2022-12-14] MEDS: heparin 5,000 unit/mL INJ 1 mL 5000 UNIT SUBCUT (21:30)
[2022-12-14] MEDS: piperacillin-tazobactam 3.375 GM in sodium chloride 0.9% (plus) 50 ML IV (21:31)
[2022-12-14] MEDS: pantoprazole 40 mg SDV IVP (21:40)
[2022-12-14 21:42] LABS: Glucose Point of Care 169 mg/dL (70-110)
[2022-12-14] MEDS: insulin lispro 100 unit/1 mL SUBCUT (21:47)
[2022-12-14 21:57] LABS: Folate Level 14.7 ng/mL (4.5-32.2)
--- NOTE | 2022-12-14 21:57 | PC.NURSE ---
ADMIT NOTE Pt was received to floor from the ER at 2049. Alert and oriented. Denies pain at present. Says he has been having chest pain off and on for 2 months now. For last 2 weeks has had lower abd pain/tenderness as well as nausea without vomiting. Abd is soft with tenderness noted across lower abd. Says he had a loose BM this morning. IV antibiotics in the ER and order for Zosyn on floor. O2 in place at 3l per NC which he says is his baseline. Reports some SOB with exertion and occprod cough. cafeteria monitor applied. VS check done and meds administered
[2022-12-14 21:58] LABS: Thyroid Stimulating Hormone 1.69 uIU/mL (0.27-4.20); Vitamin B12 519 pg/mL (232-1245)
[2022-12-14] MEDS: magnesium hydroxide 30 mL UDC PO (22:30)
[2022-12-15] VITALS (10 sets, daily range): BP systolic 111–162; BP diastolic 51–77; PULSE 81–104; RESP 16–20; TEMP 36.4–36.9; O2SAT 91–98; BMI 35.6
[2022-12-15] MEDS: piperacillin-tazobactam 3.375 GM in sodium chloride 0.9% (plus) 50 ML IV ×3 (04:40→21:40)
[2022-12-15 06:07] LABS: Basophils # 0.1 10^3/uL (0.0-0.1); Basophils % 0.8 %; Eosinophils # 0.4 10^3/uL (0.0-0.8); Eosinophils % 4.5 %; Hematocrit 32.1 % (42.0-52.0); Hemoglobin 10.1 g/dL (11.7-16.6); Lymphocytes % 20.8 %; Mean Corpuscular HGB Conc 31.5 g/dL (30.0-36.0); Mean Corpuscular Hemoglobin 27.9 pg (28.0-34.0); Mean Corpuscular Volume 88.7 fl (80-94); Mean Platelet Volume 9.4 fL (7.4-10.4); Monocytes % 10.4 %; Neutrophils # 5.99 10^3/uL (1.8-7.7); Nucleated Red Blood Cells % 0 %; Platelet Count 233 10^3/cmm (130-400); Red Blood Count 3.62 10^6/uL (4.1-5.3); Red Cell Distribution Width 16.1 % (12.1-15.1); White Blood Count 9.5 10^3/uL (4.0-10.0)
[2022-12-15 06:30] LABS: Glucose Point of Care 95 mg/dL (70-110)
[2022-12-15 06:31] LABS: Alanine Aminotransferase 9 U/L (0-41); Albumin Level 3.1 g/dL (3.5-5.2); Alkaline Phosphatase 49 U/L (40-130); Anion Gap 13.9 (5-19); Aspartate Amino Transferase 15 U/L (0-40); Blood Urea Nitrogen 14 mg/dL (8-23); Calcium 8.4 mg/dL (8.5-10.5); Carbon Dioxide 30 mmol/L (22-29); Chloride 97 mmol/L (98-107); Chol HDL Ratio 3.72 mg/dL (1.0-5.00); Cholesterol 134 mg/dL (0-200); Globulin 3.1 g/dL (1.3-4.6); Glucose 85 mg/dL (65-115); HDL Cholesterol 36 mg/dL (60-100); LDL Cholesterol Calculated 80 mg/dL (50-129); LDL HDL Ratio 2.22 RATIO (0.00-3.22); Magnesium 1.8 mg/dL (1.7-2.3); Osmolality Calculated 286 mOsm/kg (285-295); Phosphorus 2.8 mg/dL (2.5-4.5); Sodium 138 mmol/L (136-145); Total Bilirubin 0.7 mg/dL (0.15-1.2); Total Protein 6.2 g/dL (6.6-8.7); Triglycerides 88 mg/dL (0-150)
[2022-12-15 08:07] LABS: Estmated Average Glucose 154
[2022-12-15] MEDS: levothyroxine 112 mcg Tablet PO (08:50)
[2022-12-15] MEDS: heparin 5,000 unit/mL INJ 1 mL 5000 UNIT SUBCUT ×2 (08:50→20:09)
[2022-12-15] MEDS: bisacodyl 5 mg Tablet 10 MG PO (08:50)
[2022-12-15] MEDS: aspirin 81 mg EC Tablet PO (08:50)
[2022-12-15] MEDS: ondansetron 2 mg/ML SDV 2 mL 4 MG IVP (08:50)
[2022-12-15 09:21] LABS: Potassium 2.9 mmol/L (3.5-5.1)
--- NOTE | 2022-12-15 09:58 | PC.PHAR ---
Addendum entered by Nisa Teresa 12/15/22 09:59: Verified meds by external med history. Original Note: pt unable to verify medications - states Deyanira helps him with his meds, but is unsure of her number. Attempted to call the number in contact list but the phone number is not in service.
[2022-12-15] MEDS: lidocaine 1% 5 ML in potassium chloride premix 100 ML 26.25 ML IV (10:58)
[2022-12-15 12:59] LABS: Glucose Point of Care 159 mg/dL (70-110)
[2022-12-15] MEDS: lidocaine 1% 5 ML in potassium chloride premix 100 ML 52.5 ML IV (13:48)
[2022-12-15 17:11] LABS: Glucose Point of Care 138 mg/dL (70-110)
--- NOTE | 2022-12-15 17:30 | PM.PN ---
Subjective Subjective: Patient was seen and examined this morning, has been afebrile, tolerating clear liquid well, will advance diet as tolerated, hypokalemia correction is being done. Medications: Medication Review Details: Generic Name Dose Route Start Last Admin Trade Name Juanq PRN Reason Stop Dose Admin Aspirin 81 mg 12/15/22 09:00 12/15/22 08:50 Aspirin 81 Mg Ec Tablet PO 81 mg DAILY NATY Administration Bisacodyl 10 mg 12/15/22 09:00 12/15/22 08:50 Bisacodyl 5 Mg T ablet PO 10 mg DAILY NATY Administration Protocol Heparin Sodium (Po rcine) 5,000 unit 12/14/22 20:51 12/15/22 08:50 Heparin 5,000 Un it/Ml Inj 1 Ml SUBCUT 5,000 unit Q12H NATY Administration Piperacillin Sod/T azobactam 50 mls @ 12.5 mls /hr 12/14/22 21:00 12/15/22 17:19 Sod 3.375 gm/ So dium Chloride IV Infused Q8H NATY Infusion Insulin Human Lisp ro 0 unit 12/14/22 21:00 12/15/22 17:19 Insulin Lispro 1 00 Unit/1 Ml SUBCUT Not Given WM&BEDTIME NATY Protocol Levothyroxine Sodi um 112 mcg 12/15/22 09:00 12/15/22 08:50 Levothyroxine 11 2 Mcg Tablet PO 112 mcg DAILY NATY Administration Magnesium Hydroxid e 30 ml 12/14/22 22:00 12/14/22 22:30 Magnesium Hydrox teresa 30 Ml Udc PO 30 ml BEDTIME NATY Administration Ondansetron HCl 4 mg 12/14/22 20:51 12/15/22 08:50 Ondansetron 2 Mg /Ml Sdv 2 Ml IVP 4 mg Q8H PRN Administration vomiting, or N/V if npo Pantoprazole Sodiu m 40 mg 12/14/22 20:51 12/14/22 21:40 Pantoprazole 40 Mg Sdv IVP 40 mg Q24H NATY Administration Vitals/I&O/Wt Last Vital Signs Temp 97.8 F 12/15/22 16:00 Pulse 97 12/15/22 16:00 Resp 18 12/15/22 16:00 BP 155/70 12/15/22 16:00 Pulse Ox 93 12/15/22 16:00 O2 Del Method Nasal Cannula 12/15/22 16:00 O2 Flow Rate 2 12/15/22 08:00 12/15/22 12/15/22 12/15/22 06:59 14:59 22:59 Intake Total 410 / 410 1969 254.167 / 2224.167 Output Total 250 / 400 240 / 240 Balance 160 / 10 1730 / 1730 254.167 / 1984.167 Weight last 48 hrs Weight 97.25 kg Weight 97.25 kg Physical Exam Const: COMMON NORMALS: patient oriented x3 HENMT: COMMON NORMALS: normocephalic and atraumatic HEAD & SCALP: normocephalic and atraumatic Resp: COMMON NORMALS: clear to auscultation bilaterally EFFORT & INSPECTION: Yes symmetric chest movement AUSCULTATION: clear to auscultation bilaterally Cardio: COMMON NORMALS: regular rate, regular rhythm, S1 normal heart sound present, S2 normal heart sound present, No gallops present (Cardio), No murmurs present (Cardio), No rub (Cardio) and Peripheral pulses 2+ throughout RATE: regular rate RHYTHM: regular rhythm HEART SOUNDS: S1 normal heart sound present and S2 normal heart sound present PERIPHERAL PULSES: Peripheral pulses 2+ throughout GI: COMMON NORMALS: Normal to inspection, nondistended, normoactive bowel sounds present, Soft to palpation, non-tender, No hepatosplenomegaly present and no masses AUSCULTATION: Yes normoactive bowel sounds PALPATION: Yes Soft to palpation and Yes No hepatosplenomegaly present RECTAL EXAM: Yes deferred Extremity: COMMON NORMALS: no clubbing, cyanosis or edema and no pedal edema Neuro: COMMON NORMALS: patient oriented x3 Data 12/15/22 05:25 12/15/22 05:25 Micro: Microbiology 12/15/22 11:10 Stool Lactoferrin - Final Stool Enteric Pathogens (PCR) - Final C.difficile Toxin B Gene (PCR) - Final Occult Blood (FIT) - Final 12/14/22 20:10 Blood Culture - Preliminary Blood SPECIMEN COLLECTED 12/14/22 20:10 Blood Culture - Preliminary Blood SPECIMEN COLLECTED A&P Assessment and plan (1) Diverticulitis: Abdominal pain most likely in setting of diverticulitis. Seen on CT abdomen pelvis. Nausea and vomiting could be secondary to GERD. He was recently started on prednisone for pulmonary fibrosis. CT abdomen pelvis concerning for gastritis as well. Start on Zosyn for now. Check blood cultures, stool studies, lactate, procalcitonin. Zofran as needed, Protonix IV daily. Hold off on IV fluids for now given history of diastolic heart failure in the past. Hold off on diuretics. (2) Hypokalemia: Most likely in setting of vomiting. Repeat with in the ER. Recheck in AM. (3) Abdominal pain: (4) Nausea and vomiting: (5) Interstitial lung disease: Chronic history. No acute exacerbation. DuoNebs every 6 hour as needed. (6) History of heart bypass surgery: No active chest pain. Check A1c, lipid panel. Continue home dose of aspirin. Will restart statin as per lipid panel. (7) Hypothalamic hypothyroidism: Check TSH. Continue home dose of levothyroxine. (8) Hypertension: Goal blood pressure less than 140/90 mmHg. At home takes combination of lisinopril, hydrochlorothiazide along with Lasix. Hold off on antihypertensives for now. Restart as per goal blood pressures. Qualifiers: Hypertension type: essential hypertension Qualified Code(s): I10 - Essential (primary) hypertension (9) Diabetes: Stop OHA's. A1c. Carb consistent diet. Insulin sliding scale at moderate dose protocol. Qualifiers: Diabetes mellitus complication status: with hyperglycemia Diabetes mellitus ferry terminal agent insulin use: without longterm use Diabetes mellitus type: type 2 Qualified Code(s): E11.65 - Type 2 diabetes mellitus with hyperglycemia (10) Esophagitis: (11) GERD (gastroesophageal reflux disease): Plan 87 year old male with PMH of ILD,HFpEF, moderate ,CAD S/P CABG, hypothyroidism, hypertension, former smoker who presents to the ER today because of abdominal cramps which has been happening for last 2 to 3 days to a week but worsening today morning along with constipation. Currently is being managed for Assessment: Diverticulitis CT abdomen and pelvis with contrast: Findings are consistent with acute diverticulitis as well as esophagitis. Blood culture Stool studies is negative for: Stool C. difficile PCR, enteric bacterial panel negative, enteric parasitic panel pending, Stool FOBT negative Currently patient is on Zosyn. Continue clear liquid consistent diet Patient will need colonoscopy in 6 to 8 weeks time.Which can be done as an outpatient Hypokalemia: Monitor and replace serum potassium Esophagitis: CT abdomen and pelvis findings appreciated Currently on Protonix Patient will need EGD in future to rule out any possible neoplasm. History of interstitial lung disease: Currently not in exacerbation DuoNebs as needed Supplemental oxygen as needed History of HFpEF: Currently compensated Monitor intake output charting Monitor daily weight History of diabetes: Continue SSI, monitor fingerstick glucose History of hypothyroidism: Continue levothyroxine 112MCG PO daily History of coronary artery disease s/p CABG: No acute intervention at this time History of moderate aortic stenosis: Cardiology follow-up outpatient Heparin 5000 every 8 hourly for DVT prophylaxis. Discharge planning: Patient lives with his who is wheelchair-bound. States lately given advanced age and lung issues they have been finding it difficult to take care of the catheter at home. He is interested in SNF as possible. Case management consultation. PT evaluation. Attestations Medical Necessity Statement*: Needs to be in hospital for IV antibiotics. Coding Level of Care Code Acute Code for [facility] Fwd Diagnoses Diverticulitis K57.92 Hypokalemia E87.6 Abdominal pain R10.9 Nausea and vomiting R11.2 Interstitial lung disease J84.9 History of heart bypass surgery Z95.1 Hypothalamic hypothyroidism E03.8 Hypertension I10 Hypertension type: essential hypertension Diabetes E11.65 Diabetes mellitus complication status: with hyperglycemia Diabetes mellitus ferry terminal agent insulin use: without ferry terminal agent use Diabetes mellitus type: type 2 Esophagitis K20.90 GERD (gastroesophageal reflux disease) K21.9
[2022-12-15 19:20] LABS: Anion Gap 15.6 (5-19); Blood Urea Nitrogen 13 mg/dL (8-23); Calcium 8.5 mg/dL (8.5-10.5); Carbon Dioxide 30 mmol/L (22-29); Chloride 95 mmol/L (98-107); Glucose 175 mg/dL (65-115); Osmolality Calculated 288 mOsm/kg (285-295); Potassium 3.6 mmol/L (3.5-5.1); Sodium 137 mmol/L (136-145)
[2022-12-15 21:03] LABS: Glucose Point of Care 160 mg/dL (70-110)
[2022-12-15 21:12] LABS: Glucose Point of Care 152 mg/dL (70-110)
[2022-12-15] MEDS: pantoprazole 40 mg SDV IVP (21:50)
[2022-12-16] VITALS (9 sets, daily range): BP systolic 115–170; BP diastolic 69–82; PULSE 84–117; RESP 17–21; TEMP 36.6–37.2; O2SAT 89–99
[2022-12-16] MEDS: piperacillin-tazobactam 3.375 GM in sodium chloride 0.9% (plus) 50 ML IV ×3 (05:09→21:07)
[2022-12-16 07:07] LABS: Glucose Point of Care 138 mg/dL (70-110)
[2022-12-16] MEDS: heparin 5,000 unit/mL INJ 1 mL 5000 UNIT SUBCUT ×2 (09:41→21:06)
[2022-12-16] MEDS: aspirin 81 mg EC Tablet PO (09:41)
[2022-12-16] MEDS: levothyroxine 112 mcg Tablet PO (09:41)
[2022-12-16 12:09] LABS: Glucose Point of Care 175 mg/dL (70-110)
[2022-12-16] MEDS: insulin lispro 100 unit/1 mL SUBCUT ×3 (13:30→21:11)
--- NOTE | 2022-12-16 15:34 | P.PN_ITS ---
Subjective Subjective: Course, labs appreciated. On examination sitting up in chair. States feeling a lot better. Able to have his meals. Denies any nausea, vomiting, headache. On 2 to 3 L of oxygen supplementation saturating 90%. Heart rate mildly elevated. Has remained afebrile. Vitals/I&O/Wt Last Vital Signs Temp 98.0 F 12/16/22 12:00 Pulse 104 H 12/16/22 12:00 Resp 21 H 12/16/22 12:00 BP 124/70 12/16/22 12:00 Pulse Ox 89 L 12/16/22 12:00 O2 Del Method Nasal Cannula 12/16/22 08:24 O2 Flow Rate 3 12/16/22 08:24 12/16/22 12/16/22 12/16/22 06:59 14:59 22:59 Intake Total 250 / 2834.167 770 / 770 Output Total 200 / 640 Balance 50 / 2194.167 770 / 770 Weight last 48 hrs Weight 96.615 kg Weight 96.842 kg Weight 97.25 kg Weight 97.25 kg Physical Exam Narrative: General: No acute distress, AO x3, on 3 L oxygen supplementation, obese HEENT: PERRLA, pupils bilaterally equal and reactive Chest: Normal vesicular breath sounds, no added sounds, equal good air entry bilaterally CVS: S1-S2 regular, no murmurs, no tachycardia, no gallops, no rubs Abdomen: Soft, nontender, no organomegaly, bowel sounds present Neuro: No focal deficits, no facial deformity, AO x3, power 5/5 in all limbs Data 12/15/22 05:25 12/15/22 18:40 Micro: Microbiology 12/15/22 11:10 Stool Lactoferrin - Final Stool Enteric Pathogens (PCR) - Final Parasite Antigen Panel - Final C.difficile Toxin B Gene (PCR) - Final Occult Blood (FIT) - Final 12/14/22 20:10 Blood Culture - Preliminary Blood NEGATIVE TO DATE 12/14/22 20:10 Blood Culture - Preliminary Blood NEGATIVE TO DATE A&P Assessment and plan (1) Diverticulitis: Abdominal pain most likely in setting of diverticulitis. Seen on CT abdomen pelvis. Nausea and vomiting could be secondary to GERD. He was recently started on prednisone for pulmonary fibrosis. CT abdomen pelvis concerning for gastritis as well. Continue with IV Zosyn. Will transition over to oral Augmentin and Levaquin on discharge to finish a 5-day course. Stool studies negative. Blood cultures so far negative. Zofran as needed, Protonix IV daily. (2) Hypokalemia: Resolved. (3) Abdominal pain: (4) Nausea and vomiting: Resolved. (5) Interstitial lung disease: Chronic history. No acute exacerbation. DuoNebs every 6 hour as needed. (6) History of heart bypass surgery: No active chest pain. Appreciate A1c lipid panel results. Continue home dose of aspirin. Hold off on statins. 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 (8) Hypertension: Goal blood pressure less than 140/90 mmHg. At home takes combination of lisinopril, hydrochlorothiazide along with Lasix. Blood pressure stable off antihypertensives but mild tachycardia. Start on metoprolol 25 mg twice daily. Qualifiers: Hypertension type: essential hypertension Qualified Code(s): I10 - Essential (primary) hypertension (9) Diabetes: A1c 7. Suicide Low-dose protocol. Carb consistent diet. Qualifiers: Diabetes mellitus type: type 2 Diabetes mellitus penitentiary insulin use: without terminal makeup operator use Diabetes mellitus complication status: with hyperglycemia Qualified Code(s): E11.65 - Type 2 diabetes mellitus with hyperglycemia (10) Esophagitis: Protonix as above (11) GERD (gastroesophageal reflux disease): Plan Hypoxia: Most likely in setting of chronic interstitial lung disease along with mild congestive heart failure. Oral Lasix 40 mg one-time. Patient has a history of diastolic heart failure on echocardiogram. Full code. Protonix as PUD prophylaxis. Heparin 5000 every 8 hourly for DVT prophylaxis. Discharge planning: Patient lives with his who is wheelchair-bound. States lately given advanced age and lung issues they have been finding it difficult to take care of the catheter at home. He is interested in SNF as possible. Awaiting placement. Attestations Medical Necessity Statement*: Requires further hospitalization for management of diverticulitis while safe discharge planning is sought. Diagnoses Diverticulitis K57.92 Hypokalemia E87.6 Abdominal pain R10.9 Nausea and vomiting R11.2 Interstitial lung disease J84.9 History of heart bypass surgery Z95.1 Hypothalamic hypothyroidism E03.8 Hypertension I10 Hypertension type: essential hypertension Diabetes E11.65 Diabetes mellitus type: type 2 Diabetes mellitus terminal makeup operator insulin use: without terminal makeup operator use Diabetes mellitus complication status: with hyperglycemia Esophagitis K20.90 GERD (gastroesophageal reflux disease) K21.9
[2022-12-16 16:46] LABS: Glucose Point of Care 154 mg/dL (70-110)
[2022-12-16] MEDS: FUROsemide 40 mg Tablet PO (17:55)
[2022-12-16 20:27] LABS: Glucose Point of Care 146 mg/dL (70-110)
[2022-12-16] MEDS: pantoprazole 40 mg SDV IVP (21:06)
[2022-12-16] MEDS: metoprolol tartrate 25 mg Tablet PO (21:06)
[2022-12-16] MEDS: magnesium hydroxide 30 mL UDC PO (21:06)
[2022-12-17] VITALS (8 sets, daily range): BP systolic 112–147; BP diastolic 54–85; PULSE 74–113; RESP 16–22; TEMP 36.5–36.9; O2SAT 90–97
[2022-12-17] MEDS: piperacillin-tazobactam 3.375 GM in sodium chloride 0.9% (plus) 50 ML IV ×3 (04:39→19:54)
[2022-12-17 06:00] LABS: Basophils # 0.1 10^3/uL (0.0-0.1); Eosinophils # 0.8 10^3/uL (0.0-0.8); Eosinophils % 7.7 %; Hematocrit 35.1 % (42.0-52.0); Hemoglobin 10.9 g/dL (11.7-16.6); Lymphocytes # 2.4 10^3/uL (0.8-4.8); Lymphocytes % 22.3 %; Mean Corpuscular HGB Conc 31.1 g/dL (30.0-36.0); Mean Corpuscular Hemoglobin 27.3 pg (28.0-34.0); Mean Platelet Volume 9.9 fL (7.4-10.4); Monocytes # 1.1 10^3/uL (0.2-0.9); Monocytes % 9.8 %; Neutrophils # 6.38 10^3/uL (1.8-7.7); Neutrophils % 58.7 %; Nucleated Red Blood Cells % 0 %; Platelet Count 277 10^3/cmm (130-400); Red Blood Count 3.99 10^6/uL (4.1-5.3); White Blood Count 10.9 10^3/uL (4.0-10.0)
[2022-12-17 06:21] LABS: Alanine Aminotransferase 12 U/L (0-41); Albumin Level 3.5 g/dL (3.5-5.2); Alkaline Phosphatase 61 U/L (40-130); Blood Urea Nitrogen 15 mg/dL (8-23); Calcium 9.1 mg/dL (8.5-10.5); Carbon Dioxide 29 mmol/L (22-29); Chloride 97 mmol/L (98-107); Globulin 3.3 g/dL (1.3-4.6); Glucose 140 mg/dL (65-115); Osmolality Calculated 291 mOsm/kg (285-295); Sodium 139 mmol/L (136-145); Total Bilirubin 0.8 mg/dL (0.15-1.2); Total Protein 6.8 g/dL (6.6-8.7)
[2022-12-17 06:23] LABS: Anion Gap 16.9 (5-19); Aspartate Amino Transferase 24 U/L (0-40); Potassium 3.9 mmol/L (3.5-5.1)
[2022-12-17 07:03] LABS: Glucose Point of Care 134 mg/dL (70-110)
[2022-12-17] MEDS: bisacodyl 5 mg Tablet 10 MG PO (10:23)
[2022-12-17] MEDS: aspirin 81 mg EC Tablet PO (10:23)
[2022-12-17] MEDS: heparin 5,000 unit/mL INJ 1 mL 5000 UNIT SUBCUT ×2 (10:24→19:55)
[2022-12-17] MEDS: levothyroxine 112 mcg Tablet PO (10:24)
[2022-12-17] MEDS: metoprolol tartrate 25 mg Tablet PO ×2 (10:26→19:55)
[2022-12-17 11:26] LABS: Glucose Point of Care 185 mg/dL (70-110)
[2022-12-17] MEDS: insulin lispro 100 unit/1 mL SUBCUT ×3 (12:40→21:14)
[2022-12-17 17:07] LABS: Glucose Point of Care 161 mg/dL (70-110)
--- NOTE | 2022-12-17 17:11 | PM.PN ---
Subjective Subjective: No acute events overnight. Patient has remained hemodynamic stable and afebrile. Seen with at bedside. is wheelchair-bound. On 2 L of oxygen supplementation to maintain saturation of 90%. No further diarrhea. No nausea or vomiting. She is not able to take care of him at home and in no improved patient and patient's requesting transfer to SNF. Received a call from patient's primary care physician requesting the same. Vitals/I&O/Wt Last Vital Signs Temp 97.9 F 12/17/22 16:00 Pulse 90 12/17/22 16:00 Resp 18 12/17/22 16:00 BP 114/73 12/17/22 16:00 Pulse Ox 96 12/17/22 16:00 O2 Del Method Nasal Cannula 12/17/22 07:25 O2 Flow Rate 2 12/17/22 07:25 12/17/22 12/17/22 12/17/22 06:59 14:59 22:59 Intake Total 50 / 1350 510 / 510 Balance 50 / 1350 510 / 510 Weight last 48 hrs Weight 98.475 kg Weight 96.615 kg Weight 96.842 kg Physical Exam Narrative: General: No acute distress, AO x3, on 2 L oxygen supplementation, obese HEENT: PERRLA, pupils bilaterally equal and reactive Chest: Normal vesicular breath sounds, no added sounds, equal good air entry bilaterally CVS: S1-S2 regular, no murmurs, no tachycardia, no gallops, no rubs Abdomen: Soft, nontender, no organomegaly, bowel sounds present Neuro: No focal deficits, no facial deformity, AO x3, power 5/5 in all limbs Data 12/17/22 05:35 12/17/22 05:35 Micro: Microbiology 12/15/22 11:10 Stool Lactoferrin - Final Stool Enteric Pathogens (PCR) - Final Parasite Antigen Panel - Final C.difficile Toxin B Gene (PCR) - Final Occult Blood (FIT) - Final A&P Assessment and plan (1) Diverticulitis: Abdominal pain most likely in setting of diverticulitis. Seen on CT abdomen pelvis. Nausea and vomiting could be secondary to GERD. He was recently started on prednisone for pulmonary fibrosis. CT abdomen pelvis concerning for gastritis as well. Patient does not have any further diarrhea, no fevers. Has remained hemodynamically stable. Stop Zosyn. Start on Augmentin and Levaquin for 2 more days to finish a 5-day course. Stool studies negative. Blood cultures so far negative. Zofran as needed, Protonix IV daily. (2) Hypokalemia: Resolved. (3) Abdominal pain: (4) Nausea and vomiting: Resolved. (5) Interstitial lung disease: Chronic history. No acute exacerbation. DuoNebs every 6 hour as needed. (6) History of heart bypass surgery: No active chest pain. Appreciate A1c lipid panel results. Continue home dose of aspirin. Hold off on statins. 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 (8) Hypertension: Goal blood pressure less than 140/90 mmHg. At home takes combination of lisinopril, hydrochlorothiazide along with Lasix. Continue with metoprolol 25 mg twice daily. Qualifiers: Hypertension type: essential hypertension Qualified Code(s): I10 - Essential (primary) hypertension (9) Diabetes: A1c 7. Insulin sliding scale at low dose protocol. Carb consistent diet. Qualifiers: Diabetes mellitus complication status: with hyperglycemia Diabetes mellitus superintendent container terminal insulin use: without superintendent container terminal use Diabetes mellitus type: type 2 Qualified Code(s): E11.65 - Type 2 diabetes mellitus with hyperglycemia (10) Esophagitis: Protonix as above (11) GERD (gastroesophageal reflux disease): Plan Hypoxia: Most likely in setting of chronic interstitial lung disease along with mild congestive heart failure. Last echocardiogram from October 2022 shows an EF which is normal, grade 2 diastolic dysfunction, moderate aortic valve stenosis with mild aortic regurgitation. We will start patient on 20 mg of Lasix daily. Full code. Protonix as PUD prophylaxis. Heparin 5000 every 8 hourly for DVT prophylaxis. Discharge planning: Patient lives with his who is wheelchair-bound. States lately given advanced age and lung issues they have been finding it difficult to take care of the catheter at home. Patient, patient's and primary care physician requesting for be transition to SNF. Patient has been declined by [place]. [facility] stable reviewing the request. We will continue to follow. If not able to place within next 24 to 48 hours we will plan to discharge home with home health with advised to continue to pursue SNF as an outpatient. Attestations Medical Necessity Statement*: Requires further hospitalization for management of physical deconditioning, diverticulitis in an elderly with past medical history of diastolic heart failure, interstitial lung disease, safe discharge planning is sought because patient is at high risk of readmission, fall and hypoxic respiratory failure. Diagnoses Diverticulitis K57.92 Hypokalemia E87.6 Abdominal pain R10.9 Nausea and vomiting R11.2 Interstitial lung disease J84.9 History of heart bypass surgery Z95.1 Hypothalamic hypothyroidism E03.8 Hypertension I10 Hypertension type: essential hypertension Diabetes E11.65 Diabetes mellitus complication status: with hyperglycemia Diabetes mellitus superintendent container terminal insulin use: without mcc use Diabetes mellitus type: type 2 Esophagitis K20.90 GERD (gastroesophageal reflux disease) K21.9
[2022-12-17] MEDS: pantoprazole 40 mg SDV IVP (19:55)
[2022-12-17] MEDS: magnesium hydroxide 30 mL UDC PO (19:55)
[2022-12-17 20:57] LABS: Glucose Point of Care 145 mg/dL (70-110)
[2022-12-18] VITALS (10 sets, daily range): BP systolic 120–178; BP diastolic 71–77; PULSE 80–110; RESP 12–17; TEMP 36.6–36.8; O2SAT 89–98
[2022-12-18] MEDS: levoFLOXacin 500 mg Tablet PO (05:11)
[2022-12-18 05:32] LABS: Basophils # 0.1 10^3/uL (0.0-0.1); Eosinophils # 0.8 10^3/uL (0.0-0.8); Eosinophils % 6.8 %; Hematocrit 37.6 % (42.0-52.0); Hemoglobin 11.3 g/dL (11.7-16.6); Lymphocytes # 2.8 10^3/uL (0.8-4.8); Lymphocytes % 24.1 %; Mean Corpuscular HGB Conc 30.1 g/dL (30.0-36.0); Mean Corpuscular Hemoglobin 27.1 pg (28.0-34.0); Mean Corpuscular Volume 90.2 fl (80-94); Mean Platelet Volume 9.6 fL (7.4-10.4); Neutrophils % 58.5 %; Nucleated Red Blood Cells % 0 %; Platelet Count 281 10^3/cmm (130-400); Red Blood Count 4.17 10^6/uL (4.1-5.3); Red Cell Distribution Width 16.1 % (12.1-15.1); White Blood Count 11.5 10^3/uL (4.0-10.0)
[2022-12-18 05:52] LABS: Alanine Aminotransferase 18 U/L (0-41); Albumin Level 3.5 g/dL (3.5-5.2); Alkaline Phosphatase 68 U/L (40-130); Anion Gap 12.5 (5-19); Aspartate Amino Transferase 33 U/L (0-40); Blood Urea Nitrogen 16 mg/dL (8-23); Carbon Dioxide 32 mmol/L (22-29); Chloride 99 mmol/L (98-107); Globulin 3.5 g/dL (1.3-4.6); Glucose 112 mg/dL (65-115); Osmolality Calculated 292 mOsm/kg (285-295); Potassium 3.5 mmol/L (3.5-5.1); Sodium 140 mmol/L (136-145); Total Bilirubin 0.9 mg/dL (0.15-1.2)
[2022-12-18 08:57] LABS: Glucose Point of Care 139 mg/dL (70-110)
[2022-12-18] MEDS: amoxicillin-clav 500-125 mg Tablet 1 TAB PO ×3 (09:55→20:29)
[2022-12-18] MEDS: heparin 5,000 unit/mL INJ 1 mL 5000 UNIT SUBCUT ×2 (09:55→20:29)
[2022-12-18] MEDS: levothyroxine 112 mcg Tablet PO (09:55)
[2022-12-18] MEDS: aspirin 81 mg EC Tablet PO (09:56)
[2022-12-18] MEDS: bisacodyl 5 mg Tablet 10 MG PO (09:56)
[2022-12-18] MEDS: FUROsemide 20 mg Tablet PO (09:56)
[2022-12-18] MEDS: metoprolol tartrate 25 mg Tablet PO (10:03)
[2022-12-18 12:28] LABS: Glucose Point of Care 124 mg/dL (70-110)
[2022-12-18 12:28] LABS: Glucose Point of Care 214 mg/dL (70-110)
[2022-12-18] MEDS: insulin lispro 100 unit/1 mL SUBCUT ×2 (13:44→21:34)
--- NOTE | 2022-12-18 16:26 | PM.PN ---
Subjective Subjective: Status quo. Denies any new complaints. Sitting comfortably in bed. Vitals/I&O/Wt Last Vital Signs Temp 97.8 F 12/18/22 15:44 Pulse 83 12/18/22 15:44 Resp 12 12/18/22 15:44 BP 147/77 12/18/22 15:44 Pulse Ox 97 12/18/22 15:44 O2 Del Method Nasal Cannula 12/18/22 15:44 O2 Flow Rate 2 12/18/22 15:44 12/18/22 12/18/22 12/18/22 06:59 14:59 22:59 Intake Total 50 / 730 120 / 120 Balance 50 / 730 120 / 120 Weight last 48 hrs Weight 97.069 kg Weight 98.475 kg Physical Exam Narrative: General: No acute distress, AO x3, on 2 L oxygen supplementation, obese HEENT: PERRLA, pupils bilaterally equal and reactive Chest: Normal vesicular breath sounds, no added sounds, equal good air entry bilaterally CVS: S1-S2 regular, no murmurs, no tachycardia, no gallops, no rubs Abdomen: Soft, nontender, no organomegaly, bowel sounds present Neuro: No focal deficits, no facial deformity, AO x3, power 5/5 in all limbs Data 12/18/22 04:59 12/18/22 04:59 A&P Assessment and plan (1) Diverticulitis: Abdominal pain most likely in setting of diverticulitis. Seen on CT abdomen pelvis. Nausea and vomiting could be secondary to GERD. He was recently started on prednisone for pulmonary fibrosis. CT abdomen pelvis concerning for gastritis as well. Patient does not have any further diarrhea, no fevers. Has remained hemodynamically stable. Stop Zosyn. Start on Augmentin and Levaquin for 2 more days to finish a 5-day course. Stool studies negative. Blood cultures so far negative. Zofran as needed, Protonix IV daily. (2) Hypokalemia: Resolved. (3) Abdominal pain: (4) Nausea and vomiting: Resolved. (5) Interstitial lung disease: Chronic history. No acute exacerbation. DuoNebs every 6 hour as needed. (6) History of heart bypass surgery: No active chest pain. Appreciate A1c lipid panel results. Continue home dose of aspirin. Hold off on statins. 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 (8) Hypertension: Goal blood pressure less than 140/90 mmHg. At home takes combination of lisinopril, hydrochlorothiazide along with Lasix. Continue with metoprolol 25 mg twice daily. Qualifiers: Hypertension type: essential hypertension Qualified Code(s): I10 - Essential (primary) hypertension (9) Diabetes: A1c 7. Insulin sliding scale at low dose protocol. Carb consistent diet. Qualifiers: Diabetes mellitus type: type 2 Diabetes mellitus long filler cigar roller machine insulin use: without long filler cigar roller machine use Diabetes mellitus complication status: with hyperglycemia Qualified Code(s): E11.65 - Type 2 diabetes mellitus with hyperglycemia (10) Esophagitis: Protonix as above (11) GERD (gastroesophageal reflux disease): Plan Hypoxia: Most likely in setting of chronic interstitial lung disease along with mild congestive heart failure. Last echocardiogram from October 2022 shows an EF which is normal, grade 2 diastolic dysfunction, moderate aortic valve stenosis with mild aortic regurgitation. We will start patient on 20 mg of Lasix daily. Full code. Protonix as PUD prophylaxis. Heparin 5000 every 8 hourly for DVT prophylaxis. Discharge planning: Patient lives with his who is wheelchair-bound. States lately given advanced age and lung issues they have been finding it difficult to take care of the catheter at home. Patient, patient's and primary care physician requesting for be transition to SNF. Patient has been declined by [place]. Patient has been accepted [facility]. Awaiting prior authorization. Plan: Today: Continue with Augmentin and Levaquin. Continue with Lasix 20 mg oral daily. Increase metoprolol to 50 mg twice daily. Oxygen supplementation keeping saturation over 88%. Carb consistent diet. Attestations Medical Necessity Statement*: Requires further hospitalization while patient awaits transfer to SNF after prior authorization for acute on chronic physical deconditioning in setting of diverticulitis, post CABG and interstitial lung disease Diagnoses Diverticulitis K57.92 Hypokalemia E87.6 Abdominal pain R10.9 Nausea and vomiting R11.2 Interstitial lung disease J84.9 History of heart bypass surgery Z95.1 Hypothalamic hypothyroidism E03.8 Hypertension I10 Hypertension type: essential hypertension Diabetes E11.65 Diabetes mellitus type: type 2 Diabetes mellitus custodial insulin use: without custodial use Diabetes mellitus complication status: with hyperglycemia Esophagitis K20.90 GERD (gastroesophageal reflux disease) K21.9
[2022-12-18 17:08] LABS: Glucose Point of Care 127 mg/dL (70-110)
[2022-12-18] MEDS: budesonide 0.5 mg/2 mL Neb INHALATION (20:27)
[2022-12-18] MEDS: magnesium hydroxide 30 mL UDC PO (20:29)
[2022-12-18] MEDS: metoprolol tartrate 25 mg Tablet 50 MG PO (20:29)
--- NOTE | 2022-12-18 20:54 | PC.NURSE ---
Dr. Mota notified of loss of IV access. The only medication patient is getting via IV is Protonix. Ordered to switch IV Protonix to PO and leave IV out.
[2022-12-18 20:58] LABS: Glucose Point of Care 180 mg/dL (70-110)
--- NOTE | 2022-12-19 02:19 | PC.NURSE ---
Patient refusing tele.
[2022-12-19 03:37] VITALS: BP 149/78; PULSE 97; RESP 18; TEMP 36.9; O2SAT 97
[2022-12-19 04:27] LABS: Glucose Point of Care 136 mg/dL (70-110)
--- NOTE | 2022-12-19 05:38 | PC.NURSE ---
Patient has slept very much the last two nights. Patient currently appears to be sleeping. Levaquin re-timed for 8 am.
[2022-12-19 08:00] VITALS: BP 131/72; PULSE 91; PULSE 98; RESP 16; TEMP 36.7; O2SAT 93; O2SAT 96
[2022-12-19] MEDS: levoFLOXacin 500 mg Tablet PO (08:37)
[2022-12-19] MEDS: FUROsemide 20 mg Tablet PO (08:37)
[2022-12-19] MEDS: bisacodyl 5 mg Tablet 10 MG PO (08:37)
[2022-12-19] MEDS: amoxicillin-clav 500-125 mg Tablet 1 TAB PO (08:37)
[2022-12-19] MEDS: heparin 5,000 unit/mL INJ 1 mL 5000 UNIT SUBCUT (08:38)
[2022-12-19] MEDS: aspirin 81 mg EC Tablet PO (08:38)
[2022-12-19] MEDS: levothyroxine 112 mcg Tablet PO (08:38)
[2022-12-19] MEDS: pantoprazole DR 40 mg Tablet PO (08:41)
[2022-12-19] MEDS: metoprolol tartrate 25 mg Tablet 50 MG PO (08:41)
[2022-12-19] MEDS: budesonide 0.5 mg/2 mL Neb INHALATION (09:18)
--- NOTE | 2022-12-19 10:51 | P.DS_ITS ---
Discharge Providers Date of Admission: 12/14/22 19:32 Date of Discharge: December 19, 2022 Attending Provider at Admission: Ruddy Goldberg MD Attending Provider at Discharge: Ruddy Goldberg MD Primary Care Provider: Cherelle Nieto MD Diagnoses at Discharge Discharge Diagnosis (1) Diverticulitis: Status: Acute (2) Hypokalemia: Status: Acute (3) Abdominal pain: Status: Acute (4) Nausea and vomiting: Status: Acute (5) Interstitial lung disease: Status: Acute (6) History of heart bypass surgery: Status: Acute (7) Hypothalamic hypothyroidism: Status: Acute (8) Hypertension: Status: Acute Qualifiers: Hypertension type: essential hypertension Qualified Code(s): I10 - Essential (primary) hypertension (9) Diabetes: Status: Acute Qualifiers: Diabetes mellitus type: type 2 Diabetes mellitus long term care phlebotomist insulin use: without jail use Diabetes mellitus complication status: with hyperglycemia Qualified Code(s): E11.65 - Type 2 diabetes mellitus with hyperglycemia (10) Esophagitis: Status: Acute (11) GERD (gastroesophageal reflux disease): Status: Acute Reason for Visit Reason for Visit: ABD PAIN Hospital Course Hospital Course Wilbert Díaz is a 87 year old male with past medical history of interstitial lung disease, diastolic heart failure, moderate aortic stenosis, post CABG, hypothyroidism, hypertension, former smoker who presents to the ER today because of abdominal cramps which has been happening for last 2 to 3 days to a week but worsening today morning along with constipation.? Complains of nausea but no vomiting along with poor oral intake.? Denies any fever at home or sick contacts.? States his health has been on a downward trend for last 2 to 3 months since he has been diagnosed of pulmonary problems and has been feeling weaker and weaker.? Chronically on 2 to 3 L of oxygen. Blood work in the ER showed white count of 10.3, hemoglobin of 11, chemistry showing a sodium 138, potassium of 3.1, creatinine of 1, UA negative for nitrite but positive for leuk esterase.? CT abdomen pelvis as below. Patient was admitted to the hospital further evaluation and management of diverticulitis leading to dehydration from nausea and vomiting. He was started on broad-spectrum antibiotics. On admission his blood pressure is normal lower side so antihypertensives were withheld. He responded well to the treatment with IV hydration and antibiotics. Eventually antibiotics were switched to oral. Patient stool studies came back negative and did not have any further episodes of diarrhea. Patient was significantly deconditioned. Safe discharge plan were discussed in detail with the patient and his family and primary care provider. They are advised patient to go to SNF. Patient was finally accepted and has seen and has been discharged in hemodynamically stable condition. Needs follow-up on antihypertensives and take metoprolol 50 mg twice daily. He is to continue taking Augmentin and Levaquin for next 3 days. Physical Exam Narrative: General: No acute distress, AO x3, on 2 L oxygen supplementation, obese HEENT: PERRLA, pupils bilaterally equal and reactive Chest: Normal vesicular breath sounds, no added sounds, equal good air entry bilaterally CVS: S1-S2 regular, no murmurs, no tachycardia, no gallops, no rubs Abdomen: Soft, nontender, no organomegaly, bowel sounds present Neuro: No focal deficits, no facial deformity, AO x3, power 5/5 in all limbs Discharge Data Studies Completed and Pending Completed Studies During Hospitalization Category Date Time Status CT abdomen pelvis w con* [id number] Stat Cat Scan 12/14/22 15:39 Completed XR chest 1V portable [id number] Stat Exams 12/14/22 15:02 Completed Pending at discharge Category Date Time Status Blood Culture Stat Lab 12/14/22 20:10 Results SARS Covid-2 Antigen Routine Lab 12/19/22 09:48 Uncollected Radiology Impressions Chest X-Ray 12/14/22 15:02 IMPRESSION: Ill-defined opacities in the left mid and lower lung suspicious for pneumonia. Abdomen/Pelvis CT 12/14/22 15:39 IMPRESSION: 1. Findings consistent with acute diverticulitis. 2. There is mucosal thickening of the distal esophagus and gastroesophageal junction consistent with nonspecific esophagitis. Follow-up to exclude neoplasm as clinically warranted. 3. Fatty infiltration of the liver. 4. There are ovoid densities in the posterior mediastinum along right side of the esophagus likely representing lymph nodes, only partially visualized. Microbiology 12/15/22 11:10 Stool Stool Lactoferrin - Final 12/15/22 11:10 Stool Enteric Pathogens (PCR) - Final 12/15/22 11:10 Stool Parasite Antigen Panel - Final 12/15/22 11:10 Stool C.difficile Toxin B Gene (PCR) - Final 12/15/22 11:10 Stool Occult Blood (FIT) - Final 12/14/22 20:10 Blood Blood Culture - Preliminary NEGATIVE TO DATE 12/14/22 20:10 Blood Blood Culture - Preliminary NEGATIVE TO DATE Laboratory Results WBC 11.5 10^3/uL (4.0-10.0) H 12/18/22 04:59 RBC 4.17 10^6/uL (4.1-5.3) 12/18/22 04:59 Hgb 11.3 g/dL (11.7-16.6) L 12/18/22 04:59 Hct 37.6 % (42.0-52.0) L 12/18/22 04:59 MCV 90.2 fl (80-94) 12/18/22 04:59 MCH 27.1 pg (28.0-34.0) L 12/18/22 04:59 MCHC 30.1 g/dL (30.0-36.0) 12/18/22 04:59 RDW 16.1 % (12.1-15.1) H 12/18/22 04:59 Plt Count 281 10^3/cmm (130-400) 12/18/22 04:59 MPV 9.6 fL (7.4-10.4) 12/18/22 04:59 Neut % (Auto) 58.5 % 12/18/22 04:59 Lymph % (Auto) 24.1 % 12/18/22 04:59 Power % (Auto) 9.0 % 12/18/22 04:59 Eos % (Auto) 6.8 % 12/18/22 04:59 Baso % (Auto) 1.0 % 12/18/22 04:59 Neut # (Auto) 6.70 10^3/uL (1.8-7.7) 12/18/22 04:59 Lymph # (Auto) 2.8 10^3/uL (0.8-4.8) 12/18/22 04:59 Power # (Auto) 1.0 10^3/uL (0.2-0.9) H 12/18/22 04:59 Eos # (Auto) 0.8 10^3/uL (0.0-0.8) 12/18/22 04:59 Baso # (Auto) 0.1 10^3/uL (0.0-0.1) 12/18/22 04:59 Nucleated RBC % (auto) 0 % 12/18/22 04:59 Nucleated RBCs # 0.0 /100WBC 12/18/22 04:59 Sodium 140 mmol/L (136-145) 12/18/22 04:59 Potassium 3.5 mmol/L (3.5-5.1) 12/18/22 04:59 Chloride 99 mmol/L (98-107) 12/18/22 04:59 Carbon Dioxide 32 mmol/L (22-29) H 12/18/22 04:59 Anion Gap 12.5 (5-19) 12/18/22 04:59 BUN 16 mg/dL (8-23) 12/18/22 04:59 Creatinine 1.0 mg/dL (0.7-1.2) 12/18/22 04:59 GFR Calculation Not Reportable 12/18/22 04:59 Glucose 112 mg/dL (65-115) 12/18/22 04:59 POC Glucose 136 mg/dL (70-110) H 12/19/22 04:23 Estimat Average Glucose 154 12/15/22 05:25 Hemoglobin A1c 7.0 % (4.0-6.0) H 12/15/22 05:25 Calculated Osmolality 292 mOsm/kg (285-295) 12/18/22 04:59 Calcium 9.0 mg/dL (8.5-10.5) 12/18/22 04:59 Phosphorus 2.8 mg/dL (2.5-4.5) 12/15/22 05:25 Magnesium 1.8 mg/dL (1.7-2.3) 12/15/22 05:25 Total Bilirubin 0.9 mg/dL (0.15-1.2) 12/18/22 04:59 AST 33 U/L (0-40) 12/18/22 04:59 ALT 18 U/L (0-41) 12/18/22 04:59 Alkaline Phosphatase 68 U/L (40-130) 12/18/22 04:59 Total Protein 7.0 g/dL (6.6-8.7) 12/18/22 04:59 Albumin 3.5 g/dL (3.5-5.2) 12/18/22 04:59 Globulin 3.5 g/dL (1.3-4.6) 12/18/22 04:59 Triglycerides 88 mg/dL (0-150) 12/15/22 05:25 Cholesterol 134 mg/dL (0-200) 12/15/22 05:25 LDL Cholesterol, Calc 80 mg/dL (50-129) 12/15/22 05:25 HDL Cholesterol 36 mg/dL (60-100) L 12/15/22 05:25 LDL/HDL Ratio 2.22 RATIO (0.00-3.22) 12/15/22 05:25 Cholesterol/HDL Ratio 3.72 mg/dL (1.0-5.00) 12/15/22 05:25 Lipase 25 U/L (13-60) 12/14/22 14:45 Vitamin B12 519 pg/mL (232-1245) 12/14/22 20:10 Folate 14.7 ng/mL (4.5-32.2) 12/14/22 20:10 Procalcitonin 0.06 ng/mL (0-0.5) 12/14/22 20:10 TSH 1.69 uIU/mL (0.27-4.20) 12/14/22 20:10 Urine Color Yellow (Yellow) 12/14/22 16:29 Urine Appearance Clear (CLEAR) 12/14/22 16:29 Urine pH 6 (5-7) 12/14/22 16:29 Ur Specific Mcnabb 1.010 (1.005-1.030) 12/14/22 16:29 Urine Protein Neg (Negative) 12/14/22 16:29 Urine Glucose (UA) Norm (Normal) 12/14/22 16:29 Urine Ketones Negative (Negative) 12/14/22 16:29 Urine Blood Neg (Negative) 12/14/22 16:29 Urine Nitrate Negative (Negative) 12/14/22 16:29 Urine Bilirubin Neg (Negative) 12/14/22 16:29 Urine Urobilinogen Norm mg/dL (Negative) 12/14/22 16:29 Ur Leukocyte Esterase Trace (Negative) H 12/14/22 16:29 Urine RBC 0-4 /hpf (0-2) H 12/14/22 16:29 Urine WBC 10-15 /hpf (0-5) H 12/14/22 16:29 Ur Squamous Epith Cells 0-4 /hpf (0-5) H 12/14/22 16:29 Amorphous Sediment Not Reportable 12/14/22 16:29 Urine Bacteria Trace /hpf (NONE) 12/14/22 16:29 Vitals Last Vital Signs Temp 98.0 F 12/19/22 08:00 Pulse 91 12/19/22 08:00 Resp 16 12/19/22 08:00 BP 131/72 12/19/22 08:00 Pulse Ox 93 12/19/22 08:00 O2 Del Method Nasal Cannula 12/19/22 08:00 O2 Flow Rate 3 12/19/22 08:00 Discharge Plan Discharge Patient Disposition: Xfer SNF Condition: Stable Prescriptions: New levofloxacin 500 mg Tablet 500 mg PO DAILY@0600 Qty: 3 0RF metoprolol tartrate 25 mg Tablet 50 mg PO BID@0900,2100 30 Days Qty: 120 0RF pantoprazole 40 mg Tablet,Delayed Release (Dr/Ec) 40 mg PO DAILY Qty: 30 0RF amoxicillin-pot clavulanate 500-125 mg Tablet 1 tab PO TID Qty: 9 0RF Continued nitroglycerin [Nitrostat] 0.4 mg tablet, sublingual 0.4 mg SUBLINGUAL Q5M PRN (Reason: chest pain) Qty: 30 3RF folic acid 1 mg tablet 1 mg PO DAILY 90 Days Qty: 90 1RF glipizide 10 mg tablet 10 mg PO BID 90 Days Qty: 180 1RF Advair Diskus 100-50 mcg/dose blister with device 1 inh inhalation BID Qty: 60 5RF ondansetron HCl 4 mg tablet 4 mg PO Q8H PRN (Reason: nausea and vomiting) Qty: 20 0RF metformin 850 mg tablet 850 mg PO BID pioglitazone 30 mg tablet 30 mg PO DAILY levothyroxine 112 mcg tablet 112 mcg PO DAILY aspirin [Aspir-81] 81 mg Tablet,Delayed Release (Dr/Ec) 81 mg PO DAILY furosemide 20 mg tablet 20 mg PO DAILY Qty: 5 0RF Changed mirtazapine 15 mg tablet 45 mg PO DAILY 30 Days Qty: 90 0RF Discontinued nitroglycerin [Nitro-Time] 2.5 mg capsule, extended release 2.5 mg PO BID Qty: 180 3RF Rx Instructions: allow nitrate-free interval of approx. 10-12 hrs per 24-hour period prednisone 10 mg tablet See Rx Instructions .ROUTE .COMPLEX Qty: 20 0RF Dose Instruction: TAKE 1 TABLET BY MOUTH EVERY DAY *start this friday* Rx Instructions: TAKE 1 TABLET BY MOUTH EVERY DAY *start this friday* lisinopril-hydrochlorothiazide 20-12.5 mg tablet 1 tab PO BID Discharge Orders: Discharge Order (Routine); Ordered 12/19/22 Ordered By: Ruddy Goldberg Referrals: Cherelle Nieto MD [Primary Care Provider] - 1 week Discharge Diet: Diabetic Discharge Activity: Resume usual activity and Increase activity as tolerated Patient Instructions: Metoprolol (By mouth), Amoxicillin/Clavulanate Potassium (By mouth), Levofloxacin (By mouth), Pantoprazole (By mouth), Opioid Safety Activity Restrictions/Additional Instructions: He will be on Augmentin and Levaquin for antibiotics for next 3 days. Your dose of mirtazapine has been increased to 45 mg daily for depression. Hold all antihypertensive other than metoprolol 50 mg twice daily. Discharge Attestations Time Spent in Discharge Care*: greater than 30 min Specific Discharge Activities: educating patient, discussing with pcp/other providers, discussing with onsite case manager/social workers/dc planners, documenting/other paperwork and evaluating patient/reviewing data Status at Discharge: Cognitive status at discharge: cognitively intact , Behavioral status at discharge: cooperative , Functional status at discharge: uses cane/walker , Overall status at discharge: patient is back to baseline Quality Metrics Clinical Quality Measures [ No reported AMI, CVA or VTE this stay] Coding Level of Care Code 17921 Total time (in minutes) for Discharge: 60 Diagnoses Diverticulitis K57.92 Hypokalemia E87.6 Abdominal pain R10.9 Nausea and vomiting R11.2 Interstitial lung disease J84.9 History of heart bypass surgery Z95.1 Hypothalamic hypothyroidism E03.8 Hypertension I10 Hypertension type: essential hypertension Diabetes E11.65 Diabetes mellitus type: type 2 Diabetes mellitus long term care phlebotomist insulin use: without long term care phlebotomist use Diabetes mellitus complication status: with hyperglycemia Esophagitis K20.90 GERD (gastroesophageal reflux disease) K21.9
[2022-12-19 11:27] LABS: Glucose Point of Care 137 mg/dL (70-110)
[2022-12-19 11:43] LABS: SARS Covid-2 Antigen negative (Negative)
[2022-12-19 12:24] VITALS: BP 131/72; PULSE 91; RESP 16; TEMP 36.7; O2SAT 93
== END 2022-12-19 12:25 | disposition skilled nursing facility (03) ==
LOC: ER 19:31 → MEDSURG 20:25
PROVIDERS: Internal Medicine; Physician Assistant; Admitting Provider Student in an Organized Health Care Education/Training Program; Emergency Provider Emergency Medicine; PCP Family Medicine; Visit Provider Student in an Organized Health Care Education/Training Program
DX: K57.32 Diverticulitis of large intestine without perforation or abscess without bleeding (principal); K59.00 Constipation, unspecified; R10.32 Left lower quadrant pain; R11.2 Nausea with vomiting, unspecified; J84.9 Interstitial pulmonary disease, unspecified; J84.10 Pulmonary fibrosis, unspecified; E11.65 Type 2 diabetes mellitus with hyperglycemia; I11.0 Hypertensive heart disease with heart failure; I50.30 Unspecified diastolic (congestive) heart failure; E78.00 Pure hypercholesterolemia, unspecified; E87.6 Hypokalemia; R09.02 Hypoxemia; E03.8 Other specified hypothyroidism; K21.00 Gastro-esophageal reflux disease with esophagitis, without bleeding; I35.2 Nonrheumatic aortic (valve) stenosis with insufficiency; I25.10 Atherosclerotic heart disease of native coronary artery without angina pectoris; Z79.82 Long term (current) use of aspirin; Z79.84 Long term (current) use of oral hypoglycemic drugs; Z99.81 Dependence on supplemental oxygen; Z87.891 Personal history of nicotine dependence; Z95.1 Presence of aortocoronary bypass graft
CPT/HCPCS: 36415; 36416; 71045; 74177; 80048; 80053; 80061; 81001; 82274; 82607; 82746; 82962; 83036; 83630; 83690; 83735; 84100; 84145; 84443; 85025; 87040; 87426; 87493; 87506; 94640; 94664; 96365; 96366; 96367; 96372; 96375; 97116; 97161; 97530; 99285; C9113; G0378; J0744; J1644; J1815; J2405; J2543; J3480; J3490; J7030; J7626; Q9967

== ENCOUNTER 2022-12-24 14:24 | Outpatient (CLI) | payer MEDICARE, MEDICAID, SELFPAY ==
--- NOTE | 2022-12-24 14:30 | CTR_ITS ---
PROCEDURE INFORMATION: Exam: CT Chest Without Contrast; Diagnostic Exam date and time: 12/24/2022 2:36 PM Age: 87 years old Clinical indication: Condition or disease; Lung condition and disease; Other: Ild; Prior surgery; Surgery date: 6+ months; Surgery type: Heart TECHNIQUE: Imaging protocol: Diagnostic computed tomography of the chest without contrast. Radiation optimization: All CT scans at this facility use at least one of these dose optimization techniques: automated exposure control; mA and/or kV adjustment per patient size (includes targeted exams where dose is matched to clinical indication); or iterative reconstruction. REPORTING DATA: Count of CT and Cardiac NM exams in prior 12 months: This patient has received 2 known CTs and 0 known cardiac nuclear medicine studies in the 12 months prior to the current study. COMPARISON: CT angio chest PE protcl [id number] 09/23/2022 7:04 AM RADIATION DOSE METRICS: Total DLP (mGy-cm): 1666.43 FINDINGS: Lungs: Patchy bilateral airspace opacities reflecting atelectasis and/or infiltrate, increased compared to prior exam. Emphysematous changes. Scattered bronchiectasis again seen throughout both lung bowles. Pleural spaces: Small bilateral pleural effusions. Heart: Cardiomegaly. Coronary arteries: Coronary artery atherosclerotic calcifications. Lymph nodes: Scattered somewhat enlarged mediastinal lymph nodes measuring up to 10 mm, nonspecific. Vasculature: Ascending thoracic aorta somewhat prominent at 3.6 cm. Gallbladder and bile ducts: Cholelithiasis. Kidneys and ureters: Bilateral renal cysts, negative for follow-up advised. Bones/joints: Sternotomy wires. Soft tissues: Unremarkable. CT/CT chest [facility] [id number] IMPRESSION: 1. Patchy bilateral airspace opacities reflecting atelectasis and/or infiltrate, increased compared to prior exam. 2. Ascending thoracic aorta somewhat prominent at 3.6 cm. 3. Scattered somewhat enlarged mediastinal lymph nodes measuring up to 10 mm, nonspecific. 4. Cardiomegaly. 5. Coronary artery atherosclerotic calcifications. 6. Sternotomy wires. 7. Small bilateral pleural effusions. 8. Cholelithiasis. 9. Bilateral renal cysts, negative for follow-up advised. 10. Emphysematous changes. 11. Scattered bronchiectasis again seen throughout both lung bowles. COMMENTS: Consistent with the [employer]'s Incidental Findings Committee white paper (J Am Khadijah Radiol 2018): Any incidental renal lesion less than 1 cm or classified as too small to characterize, or any incidental cystic renal lesion characterized as simple-appearing, is likely benign. No follow-up imaging is recommended for these lesions per consensus recommendations based on imaging criteria.
== END 2022-12-24 14:25 | disposition home or self-care (01) ==
LOC: RAD 14:26
PROVIDERS: PCP Family Medicine; Visit Provider Internal Medicine Pulmonary Disease
DX: J84.9 Interstitial pulmonary disease, unspecified (principal); J90 Pleural effusion, not elsewhere classified; I51.7 Cardiomegaly
CPT/HCPCS: 71250

== ENCOUNTER 2023-01-09 11:34 | Emergency (ER) | payer MEDICARE, MEDICAID, SELFPAY ==
[2023-01-09 11:36] VITALS: BP 128/88; PULSE 88; RESP 18; TEMP 36.8; O2SAT 91; BMI 34.8
--- NOTE | 2023-01-09 11:48 | CT_ITS ---
WS: [id number] CT HEAD TECHNIQUE: Noncontrast CT of the head obtained from the skullbase to the vertex. CLINICAL INFORMATION: fall with ams COMPARISON: None. DLP: 1301.[address] scans at [facility] use at least one of these dose optimization techniques: automated e xposure control; mA and/or kV adjustment per patient size (includes targeted exams where dose is matc hed to clinical indication); or iterative reconstruction. FINDINGS: No evidence of intracranial hemorrhage or mass effect. Ventricular system and basal cisterns are julio nt. Moderate small vessel changes with moderate parenchymal volume loss. Chronic lacunar infarct LEFT thalamus. Chronic lacunar infarcts in the RIGHT lateral basal ganglia. Normal posterior RIGHT nasoph arynx. Paranasal sinuses and mastoid air cells are well aerated. .Normal visualized soft tissues. CT/CT head wo con* [id number] IMPRESSION: 1. No evidence of intracranial hemorrhage or mass effect. 2. Moderate to advanced small vessel changes moderate parenchymal volume loss. 3. Intracranial vascular calcification. 4. No acute intracranial findings.
--- NOTE | 2023-01-09 11:48 | CT_ITS ---
WS: [id number] CT CERVICAL TRAUMA TECHNIQUE: Noncontrast CT of the cervical spine with coronal and sagittal reformatted images. CLINICAL INFORMATION: fall with neck pain COMPARISON: None. DLP: 1301.[address] scans at [facility] use at least one of these dose optimization techniques: automated e xposure control; mA and/or kV adjustment per patient size (includes targeted exams where dose is matc hed to clinical indication); or iterative reconstruction. FINDINGS: Straightening of the normal cervical lordosis. Slight anterolisthesis C2 on C3. Disc space narrowing worse at C3-C4 and C5-C6 disc osteophyte complexes. Nuchal ligament calcification. Moderate spondylit ic changes cervical spine. Vascular calcification. Partially visualized pleural effusions in the post erior lungs Normal craniocervical junction. Normal C1-C2 articulation. Dens is normal in appearance. Normal occipital condyles. No evidence of acute fracture or dislocation. Mild central canal stenosis C3-C4 C4-C5 and C5-C6. Normal prevertebral soft tissues. Mastoids air cells are well aerated. CT/CT cervical spin wo con* [id number] IMPRESSION: 1. No evidence of acute fracture or dislocation. 2. Partially visualized pleural effusions.
--- NOTE | 2023-01-09 11:49 | ED_ITS ---
HPI - Fall General: Chief Complaint: Fall Stated Complaint: AMS, fall Time Seen by Provider: 01/09/23 11:36 Source: patient Mode of arrival: EMS Limitations: no limitations History of Present Illness: This patient was transported to the emergency department via EMS from the [facility]. History is obtained from EMS as well as from the patient. EMS reports that longterm staff told them that the patient had fallen last evening and did not complain of any pain or injury and was acting normal at that time. This morning they became concerned because the patient was found wandering around his room unclothed. They felt that this represented a change in his behavior and therefore sent him to the emergency department. He has no history of other current symptoms. No fevers noted blood sugar was normal prior to arrival via EMS. He is oxygen dependent for COPD and CHF and was found with his oxygen not completely in his normal status upon their arrival to the [facility]. The patient states that he is aware of his fall last evening. He states he did hit his head but did not feel any pain. He states he has no pain this morning. He states he had soiled his clothing and therefore taken them off when the longterm staff discovered him in his room. He also states he wanted an ibuprofen this morning and they refused to give him 1 and made him a little irascible. He states he has not eaten breakfast this morning but is not particularly hungry. He denies any constitutional complaints. complaint: fall Fall from: standing Fall witnessed: yes, by living facility staff Place fall occurred: longterm/SNF Loss of consciousness: None Symptoms prior to fall: none Context: tripped/slipped Location of injury: head Associated symptoms-after fall: Denies headache(s) or neck pain Review of Systems Const: Denies: fever(s) or chills Eyes: Denies: change in vision ENMT: Denies: odynophagia, nasal discharge or nasal congestion Card: Denies: syncope or pre-syncope Resp: Denies: productive cough or non-productive cough GI: Denies: nausea, vomiting or diarrhea : Reports: urinary incontinence; Denies: flank pain, difficulty urinating or dysuria Musc: Denies: neck pain, back pain or extremity pain Skin/Breast: Denies: rash Neuro: Denies: headache(s), numbness in extremities, weakness in extremities, Slurred speech present or seizure-like activity Stefan/Lymph: Denies: easy bruising or easy bleeding PFSH ED PFSH: Medical History Diabetes Hypercholesteremia Hypertension Hypothalamic hypothyroidism Interstitial lung disease Venous insufficiency Surgical History History of heart bypass surgery Social History Smoking and tobacco status: former smoker Alcohol intake: never Substance/Drug Use: never Caregiver/support person: Yes Lives independently: Yes Household members: spouse Housing: House Marital status: Physical Exam Narrative: EXAM NARRATIVE: Upon arrival to the examination room the patient was noted to be very alert and interactive both when EMS staff as well as with this examiner and the director of staff development. He answers questions readily in a goal-directed and appropriate fashion. He was quite loquacious at times with verbal sparring and making jokes. Const: COMMON NORMALS: no acute distress, patient oriented x3 and alert GENERAL APPEARANCE: cooperative and comfortable NUTRITIONAL APPEARANCE: overweight HENMT: COMMON NORMALS: normocephalic HEAD & SCALP: normocephalic and contusion (Left parietal. Very minimal.); no hematoma and no laceration Eye: COMMON NORMALS: Equal, round and reactive pupils present, EOMs intact bilaterally and conjunctivae normal CONJUNCTIVA: Yes conjunctivae normal PUPIL: Yes Equal, round and reactive pupils present Neck/C-Spine: COMMON NORMALS: full ROM CERVICAL SPINE: No Cervical spine tenderness, No step off deformity and No Paracervical muscle tenderness Chest: COMMONS NORMALS: normal inspection of the chest and normal palpation of entire chest wall Resp: COMMON NORMALS: normal respiratory effort and clear to auscultation bilaterally EFFORT & INSPECTION: Yes able to speak in complete sentences AUSCULTATION: clear to auscultation bilaterally Cardio: COMMON NORMALS: regular rate, regular rhythm, No murmurs present ( Cardio) and Peripheral pulses 2+ throughout RATE: regular rate RHYTHM: regular rhythm PERIPHERAL PULSES: Peripheral pulses 2+ throughout GI: COMMON NORMALS: Normal to inspection, nondistended, normoactive bowel sounds present, Soft to palpation and non-tender PALPATION: Yes Soft to palpation : COMMON NORMALS: Yes no CVA tenderness BLADDER/KIDNEY EXAM: Yes no CVA tenderness Back/Pelvis: COMMON NORMALS: no CVA tenderness, thoracic and lumbar spine normal to inspection, no thoracic nor lumbar tenderness, thoraco-lumbar ROM normal and straight leg raise negative bilaterally Extremity: COMMON NORMALS: full ROM, capillary refill normal and no calf tenderness NARRATIVE EXTREMITY EXAM: Bilateral pretibial edema. Neuro: COMMON NORMALS: patient oriented x3, moves all extremities, no focal motor deficits and no sensory deficits noted SENSORIUM/ORIENTATION: Yes alert CRANIAL NERVES: Yes CN normal except as noted Psych: COMMON NORMALS: mental status grossly normal Skin: COMMON NORMALS: no rashes or lesions noted and turgor normal GENERAL SKIN EXAM: no rashes or lesions noted and turgor normal Course Reevaluation(s): Reevaluation #1: The patient's vital signs remained stable. Reevaluation the patient finds him to be alert interactive and no new or focal findings. Chest x-ray, CT of head and neck are all reassuring. He does have some chronic changes on his chest x-ray but nothing that is suggestive acute infiltrate or other concerning acute finding. Cardiogram is consistent with prior electrocardiograms he is in atrial for with a controlled ventricular response. Patient is stable without any evidence of intracranial injury at this time. He provides very plausible explanation for his activities and actions today. At this point time there is no evidence of an ongoing emergency medical condition and no indication for additional evaluation based upon current presentation. Medical screening evaluation completed. Time: 13:26 Vital Signs: Vital signs: Vital Signs Temperature 98.2 F 01/09/23 11:36 Pulse Rate 93 01/09/23 12:29 Respiratory Rate 18 01/09/23 11:36 Blood Pressure 123/97 01/09/23 12:29 Pulse Oximetry 99 01/09/23 12:29 Oxygen Delivery Me thod Nasal Cannula 01/09/23 11:36 Oxygen Flow Rate 3 01/09/23 11:36 MDM - Fall Medical Decision Making Elderly patient who is a resident of a long-term care facility was observed to have a ground-level fall yesterday evening. No injury claimed at that time. Normal activities were continued and today staff became concerned because they discovered him in his room unclothed appearance and thought that this represented a potential change in mental status and sent him to the emergency department for imaging and further evaluation. There was no history of fevers or other perturbations in his usual constitution. The patient related to history that he had had an accident and could not find new closed to change into and that was discovered in a unclothed condition. Clinical examination revealed him to be quite jovial alert and interactive. No focal findings on physical examination. Imaging was obtained to ensure that no evidence of skull fracture or intracranial hemorrhage etc. CT of the head and neck were reassuring without any new changes revealing predominantly chronic age-related changes. Chest x-ray and EKG were also reassuring without any acute changes. Patient does not have any evidence at this time that suggest intracranial injury, bleeding etc. He is clinically stable suitable to return to the long- term care facility with follow-up as needed. Lab Data I reviewed the patient's lab results. Radiology Impressions Cervical Spine CT 01/09/23 11:48 IMPRESSION: 1. No evidence of acute fracture or dislocation. 2. Partially visualized pleural effusions. Head CT 01/09/23 11:48 IMPRESSION: 1. No evidence of intracranial hemorrhage or mass effect. 2. Moderate to advanced small vessel changes moderate parenchymal volume loss. 3. Intracranial vascular calcification. 4. No acute intracranial findings. Chest X-Ray 01/09/23 11:58 Impression: Diffuse pulmonary opacities especially in the left lower lobe which are chronic and probably represent chronic interstitial lung disease. EKG Data EKG 1: I personally reviewed and interpreted this EKG as follows: Interpretation: Review of resting EKG reveals a ventricular rate of 88 bpm. Underlying rhythm is consistent with atrial fibrillation with a controlled ventricular response. QRS duration and QT corrected are normal. No acute ST-T wave changes noted.Tracing is consistent with prior tracings available within the system. Discharge Plan Discharge Patient Disposition: LTCH w Plan Readm Clinical Impression: Fall from ground level, Atrial fibrillation, chronic, Chronic interstitial lung disease Condition: Stable Prescriptions: No Action nitroglycerin [Nitrostat] 0.4 mg tablet, sublingual 0.4 mg SUBLINGUAL Q5M PRN (Reason: chest pain) Qty: 30 3RF folic acid 1 mg tablet 1 mg PO DAILY 90 Days Qty: 90 1RF Advair Diskus 100-50 mcg/dose blister with device 1 inh inhalation BID Qty: 60 5RF ondansetron HCl 4 mg tablet 4 mg PO Q8H PRN (Reason: nausea and vomiting) Qty: 20 0RF metformin 850 mg tablet 850 mg PO BID pioglitazone 30 mg tablet 30 mg PO DAILY levothyroxine 112 mcg tablet 112 mcg PO DAILY aspirin 81 mg Tablet,Delayed Release (Dr/Ec) 81 mg PO DAILY furosemide 20 mg tablet 20 mg PO DAILY Qty: 5 0RF pantoprazole 40 mg Tablet,Delayed Release (Dr/Ec) 40 mg PO DAILY Qty: 30 0RF metoprolol tartrate 25 mg Tablet 50 mg PO BID@0900,2100 30 Days Qty: 120 0RF acetaminophen 325 mg Tablet 650 mg PO QID PRN (Reason: Pain) Dulcolax (bisacodyl) 10 mg Suppository 10 mg AR DAILY PRN (Reason: Constipation) mirtazapine 15 mg tablet 45 mg PO DAILY Discharge Orders: Discharge ED (Routine); Ordered 01/09/23 Ordered By: Jorge Mcclure Referrals: Cherelle Nieto MD [Primary Care Provider] - Discharge Diet: Usual diet Discharge Activity: Increase activity as tolerated Activity Restrictions/Additional Instructions: During your emergency department stay you were evaluated because of concerns about your fall and possible intracranial injury. Scans of your head and neck as well as other studies done at that time revealed no evidence of concerning injury. You should resume your normal medications, normal activity to include your oxygen as previously directed. If you develop any new or other concerning symptoms you are welcome to return to the emergency department for reevaluation. Coding Level of Care Code ED Skirt Clipper for Guido Camarillo
--- NOTE | 2023-01-09 11:58 | XR_ITS ---
WS: [id number] Portable AP upright chest, 01/09/2023 Clinical Data: fall Comparison: Portable chest, 12/14/2022 Findings: There is a patchy left lower lobe opacity which has not changed. There are patchy opacities in the right lung that are less dense than the left. The heart is probably enlarged. The aortic arch and descending thoracic aorta show calcification. Midline sternotomy sutures are noted. There are no nodules or masses. XR/XR chest 1V portable [id number] Impression: Diffuse pulmonary opacities especially in the left lower lobe which are chronic and probably represent chronic interstitial lung disease.
[2023-01-09 12:29] VITALS: BP 123/97; PULSE 93; O2SAT 99
--- NOTE | 2023-01-09 12:29 | ECG_ITS ---
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 Measurements Intervals [place] Rate: 88 P: 0 MA: 0 QRS: -12 QRSD: 102 T: 28 QT: 397 QTc: 483 Interpretive Statements ATRIAL FIBRILLATION INFERIOR MYOCARDIAL INFARCTION , PROBABLY OLD [40+ ms Q WAVE AND/OR ST/T ABNORMALITY IN II/aVF] Compared to ECG 12/09/2022 12:55:30 Myocardial infarct finding now present Intraventricular conduction delay no longer present T-wave abnormality no longer present Electronically Signed On 01-09-2023 20:39:01 CDT by Ciarra Menard M.D. [email or web address]
[2023-01-09 14:19] VITALS: BP 145/90
[2023-01-09 14:55] VITALS: BP 148/86; PULSE 90; O2SAT 98
== END 2023-01-09 14:57 ==
PROVIDERS: Emergency Provider Emergency Medicine; PCP Family Medicine
DX: I48.20 Chronic atrial fibrillation, unspecified (principal); J84.89 Other specified interstitial pulmonary diseases; Z79.82 Long term (current) use of aspirin; Z79.84 Long term (current) use of oral hypoglycemic drugs; E11.9 Type 2 diabetes mellitus without complications; I10 Essential (primary) hypertension; Z87.891 Personal history of nicotine dependence
CPT/HCPCS: 70450; 71045; 72125; 93005; 99285

== ENCOUNTER 2023-01-10 14:29 | Outpatient (CLI) | payer MEDICARE, MEDICAID, SELFPAY ==
[2023-01-10 15:22] LABS: Basophils # 0.1 10^3/uL (0.0-0.1); Basophils % 0.9 %; Eosinophils # 0.4 10^3/uL (0.0-0.8); Eosinophils % 3.8 %; Hematocrit 38.6 % (42.0-52.0); Hemoglobin 11.6 g/dL (11.7-16.6); Lymphocytes # 2.4 10^3/uL (0.8-4.8); Lymphocytes % 23.9 %; Mean Corpuscular HGB Conc 30.1 g/dL (30.0-36.0); Mean Corpuscular Hemoglobin 27.2 pg (28.0-34.0); Mean Corpuscular Volume 90.4 fl (80-94); Mean Platelet Volume 10.5 fL (7.4-10.4); Monocytes # 0.9 10^3/uL (0.2-0.9); Monocytes % 8.9 %; Neutrophils # 6.33 10^3/uL (1.8-7.7); Neutrophils % 62.1 %; Nucleated Red Blood Cells % 0 %; Platelet Count 229 10^3/cmm (130-400); Red Blood Count 4.27 10^6/uL (4.1-5.3); Red Cell Distribution Width 16.7 % (12.1-15.1); White Blood Count 10.2 10^3/uL (4.0-10.0)
[2023-01-10 15:50] LABS: Anion Gap 19.3 (5-19); Blood Urea Nitrogen 16 mg/dL (8-23); Calcium 9.7 mg/dL (8.5-10.5); Carbon Dioxide 26 mmol/L (22-29); Chloride 99 mmol/L (98-107); Glucose 109 mg/dL (65-115); Osmolality Calculated 292 mOsm/kg (285-295); Potassium 4.3 mmol/L (3.5-5.1); Sodium 140 mmol/L (136-145)
[2023-01-10 16:06] LABS: Urine Appearance Clear (CLEAR); Urine Color Dark Yellow (Yellow); pH Urine 5 (5-7)
[2023-01-10 16:07] LABS: Add Urine Culture? No; Add Urine Microscopic? YES; Bilirubin Urine 1+ (Negative); Blood Urine Neg (Negative); Glucose Urine UA Norm (Normal); Ketones Urine Negative (Negative); Leukocyte Esterase Urine 1+ (Negative); Nitrate Urine Negative (Negative); Protein Urine 1+ (Negative); RBC Urine 0-4 /hpf (0-2); Squamous Epithelial Cell Urine 0-4 /hpf (0-5); Urobilinogen Urine 4 mg/dL (Negative)
== END 2023-01-10 14:30 | disposition home or self-care (01) ==
LOC: LAB 14:32
PROVIDERS: PCP Family Medicine; Visit Provider Internal Medicine
DX: K57.92 Diverticulitis of intestine, part unspecified, without perforation or abscess without bleeding (principal)
CPT/HCPCS: 80048; 81001; 85025